=== PATIENT | female | born 1940 | race Two or more races ===

== ENCOUNTER 2016-08-12 18:01 | Emergency (ER) | payer OTHER ==
[2016-08-12 18:08] VITALS: TEMP 97.8
--- NOTE | 2016-08-12 18:20 | PDOC ---
History of Present Illness - History of Present Illness Initial Comments: 08/12/16 19:00 The patient is a 75 year old female with a past medical hx of TIA (2012), [place], HTN, who presents to the ED for evaluation of possible TIA yesterday. The patient reports she was in [place] yesterday when she started to have difficulty with her memory. She reports she was unable to recall the names of her children or grandchildren. The patient reports she went [place] the food court to sit down. She drank some water and took Aspirin and 2 nitro under her tongue. She reports she measured her pulse and it was around 120. The patient reports for about 90 minutes she kept testing her memory and trying to stay calm. She states she was finally able to recall the names of her children and grandchildren. She notes another similar episode happened in 2012 when she was diagnosed with a TIA. The patient went to see her Iron Erector today, Dr. Flor Navarro, who sent her to the ED for further evaluation of her symptoms. The patient notes she feels fine while in the ED. The patient denies any chest pain, SOB, nausea, vomiting The patient denies any weakness, numbness, headache Surgical: None Social: Denies any toxic habits Allergies: NKDA PCP: Dr. Rizvi <Kait Hernández - Last Filed: 08/12/16 21:18> <Sangeeta Morfin - Last Filed: 08/12/16 21:58> - General Chief Complaint: CVA/TIA Stated Complaint: PCP SENT/WEAKNESS Time Seen by Provider: 08/12/16 18:18 Past History <Kait Hernández - Last Filed: 08/12/16 21:18> - Past Medical History Cardiac Disorders: Yes (heart attack 2001) CVA: Yes HTN: Yes Suicide Attempt (Hx): No - Surgical History Appendectomy: Yes - Psycho/Social/Smoking Cessation Hx Anxiety: No Suicidal Ideation: No Smoking Status: No Smoking History: Never smoked Have you smoked in the past 12 months: No Number of Cigarettes Smoked Daily: 0 Hx Alcohol Use: No Drug/Substance Use Hx: No Substance Use Type: None Hx Substance Use Treatment: No <Sangeeta Morfin - Last Filed: 08/12/16 21:58> - Past Medical History Allergies/Adverse Reactions: Allergies Allergy/AdvReac Type Severity Reaction Status Date / Time No Known Allergies Allergy Verified 08/12/16 18:08 Home Medications: Ambulatory Orders Aspirin [ASA -] 81 mg PO DAILY 06/28/12 Atorvastatin Calcium [Lipitor] 10 mg PO DAILY 06/28/12 Metoprolol Tartrate [Lopressor -] 50 mg PO DAILY 06/28/12 Cetirizine HCl [Zyrtec -] 10 mg PO DAILY 08/12/16 Cholecalciferol (Vitamin D3) [Vitamin D3] 2,000 unit PO DAILY 08/12/16 Ubidecarenone [Q-Sorb Co Q-10] 0 mg PO DAILY 08/12/16 Review of Systems - Review of Systems Able to Perform ROS?: Yes Comments:: 08/12/16 19:05 CONSTITUTIONAL: Absent: fever, chills, diaphoresis, generalized weakness, malaise, loss of appetite HEENT: Absent: rhinorrhea, nasal congestion, throat pain, throat swelling, difficulty swallowing, mouth swelling, ear pain, eye pain, visual Changes CARDIOVASCULAR: Absent: chest pain, syncope, irregular heart rate, lightheadedness, peripheral edema RESPIRATORY: Absent: cough, shortness of breath, dyspnea with exertion, orthopnea, wheezing, stridor, hemoptysis GASTROINTESTINAL: Absent: abdominal pain, abdominal distension, nausea, vomiting, diarrhea, constipation, melena, hematochezia GENITOURINARY: Absent: dysuria, frequency, urgency, hesitancy, hematuria, flank pain, genital pain MUSCULOSKELETAL: Absent: myalgia, arthralgia, joint swelling SKIN: Absent: rash, itching, pallor HEMATOLOGIC/IMMUNOLOGIC: Absent: easy bleeding, easy bruising, lymphadenopathy, frequent infections ENDOCRINE: Absent: unexplained weight gain, unexplained weight loss, heat intolerance, cold intolerance NEUROLOGIC: +Difficulty recalling memory, confusion. Absent: headache, focal weakness or paresthesias, dizziness, unsteady gait, seizure, bladder or bowel incontinence PSYCHIATRIC: Absent: anxiety, depression, suicidal or homicidal ideation, hallucinations. <Kait Hernández - Last Filed: 08/12/16 21:18> *Physical Exam - Vital Signs Last Vital Signs Temp Pulse Resp BP Pulse Ox 97.8 F 78 18 185/88 96 08/12/16 18:03 08/12/16 18:03 08/12/16 18:03 08/12/16 18:03 08/12/16 18:03 - Physical Exam Comments: 08/12/16 19:02 GENERAL: Well developed, well nourished. Awake and alert. No acute distress. HEENT: Normocephalic, atraumatic. PERRLA, EOMI. No conjunctival pallor. Sclera are non- icteric. Moist mucous membranes. Oropharynx is clear. NECK: Supple. Full ROM. No JVD. Carotid pulses 2+ and symmetric, without bruits. No thyromegaly. No lymphadenopathy. CARDIOVASCULAR: Regular rate and rhythm. No murmurs, rubs, or gallops. Distal pulses are 2+ and symmetric. PULMONARY: No evidence of respiratory distress. Lungs clear to auscultation bilaterally. No wheezing, rales or rhonchi. ABDOMINAL: Soft. Non-tender. Non-distended. No rebound or guarding. No organomegaly. Normoactive bowel sounds. MUSCULOSKELETAL Normal range of motion at all joints. No bony deformities or tenderness. No CVA tenderness. EXTREMITIES: No cyanosis. No clubbing. No edema. No calf tenderness. SKIN: Warm and dry. Normal capillary refill. No rashes. No jaundice. NEUROLOGICAL: Alert, awake, appropriate. Cranial nerves 2-12 intact. No deficits to light touch and temperature in face, upper extremities and lower extremities. No motor deficits in the in face, upper extremities and lower extremities. Normoreflexic in the upper and lower extremities. Normal speech. Toes are down-going bilaterally. Gait is normal without ataxia. PSYCHIATRIC: Cooperative. Good eye contact. Appropriate mood and affect. <Kait Hernández - Last Filed: 08/12/16 21:18> - Vital Signs Last Vital Signs Temp Pulse Resp BP Pulse Ox 97.8 F 78 18 185/88 96 08/12/16 18:03 08/12/16 18:03 08/12/16 18:03 08/12/16 18:03 08/12/16 18:03 <Sangeeta Morfin - Last Filed: 08/12/16 21:58> Heart Score/ECG Review - ECG Impressions Comment:: 08/12/16 20:59 EKG Rate 96 bpm Sinus rhythm with frequent premature ventricular complexes Nonspecific ST and T wave abnormality Prolonged QT <Kait Hernández - Last Filed: 08/12/16 21:18> ED Treatment Course - LABORATORY CBC & Chemistry Diagram: 08/12/16 19:44 08/12/16 19:44 - RADIOLOGY Radiograph Interpretation: 08/12/16 21:13 Single view AP portable chest Headaches Comparison studies: June 28, 2012 Trachea midline with normal heart size and no mediastinal widening No infiltrate, mass or effusion Linear crescentic density of air seen beneath the left hemidiaphragm likely related to air within stomach or bowel, consider follow-up abdominal flat and upright views if clinically warranted for confirmation Impression: No infiltrate or edema in the lungs-no definite acute changes observed. Reported By: Nikolay King MD 08/12/162051 CT brain without contrast Headaches Comparison studies: June 28, 2012 Axial imaging completed demonstrating normal aeration in the sinuses and mastoids with no calvarial lesion Midline ventricular system with no shift or hydrocephalus No subdural or subarachnoid hemorrhage with no hyperdense vessel No signs of bowel herniation No evidence of increased intracranial pressure Impression: CT imaging completed with no evidence of mass, hemorrhage or acute vascular territory infarction. No acute changes in the brain identified. Reported By: Nikolay King MD 08/12/162021 <Kait Hernández - Last Filed: 08/12/16 21:18> - LABORATORY CBC & Chemistry Diagram: 08/12/16 19:44 08/12/16 19:44 <Sangeeta Morfin - Last Filed: 08/12/16 21:58> Medical Decision Making - Medical Decision Making 08/12/16 21:[address] Quintana at 20:45, awaiting call back Dr. Mcfarlane is scientific publications editor. Called back at 2100. The patients case was discussed Called Dr. Rizvi at 21:09, the patients case was discussed. <Kait Hernández - Last Filed: 08/12/16 21:18> - Medical Decision Making 08/12/16 21:20 75-year-old female experienced TIA symptoms yesterday while shopping at [employer] She had a 90 minute episode of difficulty speaking and retrieval -She states that at that time her pulse was high in the 120s, so she took 2 sublingual nitros. She was not experiencing any chest pain at the time but had complaint of palpitations-she did haven't have a cardiology appointment with Dr. Flor Quintana today. After she described her symptoms. 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 Amin is covering for Dr. Solis and gave him the CAT scan report which she will To the Patient's Iron Erector I spoke with the neurologist said that the patient could be followed as an outpatient or if she so desired, could be admitted for a brain MRI, echo and carotid Doppler studies The neurologist recommended full-strength aspirin at this time The Dr. Rizvi, who is the patient's primary medical doctor and he wanted her discharged and will see her at 9:30 tomorrow morning in his office when he will arrange for brain MRI, echo and carotid ultrasound -NIHSS IS ZERO WITH NO FOCAL NEURO DEFICITS NOTED . ALL HER SYMPTOMS OCCURRED 24 HOURS AGO 08/12/16 21:54 <Sangeeta Morfin - Last Filed: 08/12/16 21:58> *DC/Admit/Observation/Transfer - Attestations Scribe Attestion: 08/12/16 19:00 Documentation prepared by Kait Hernández, acting as biomedical service engineer for Sangeeta Morfin MD/DO. <Kait Hernández - Last Filed: 08/12/16 21:18> <Sangeeta Morfin - Last Filed: 08/12/16 21:58> Diagnosis at time of Disposition: TIA (transient ischemic attack) Qualifiers: Transient cerebral ischemia type: other Qualified Code(s): G45.8 - Other transient cerebral ischemic attacks and related syndromes - Discharge Dispostion Disposition: HOME Condition at time of disposition: Stable - Referrals Referrals: Navarro Rizvi MD [Primary Care Provider] - - Patient Instructions Printed Discharge Instructions: DI for Transient Ischemic Attack Additional Instructions: PLEASE SEE DR RIZVI TOMORROW AT 9:30 IN HIS OFFICE CALL 911 IF YOU HAVE ANY CONFUSION, WEAKNESS IN YOUR ARMS OR LEGS,NUMBNESS OR TINGLING IN YOUR FACE ,SPEECH DIFFICULTY NIH Stroke Scale - Last Known Well Date/Time & Onset Date Last Known Well: 08/11/16 Time Last Known Well: 14:00 - Initial Evaluation Level of consciousness: Alert Ask patient the month and their age: Answers both correctly Ask patient to open & close eyes; make fist and let go: Obeys both correctly Best gaze (horizontal eye movement): Normal Visual field testing: No visual field loss Facial paresis (Show teeth/raise eyebrows/close eyes tight): Normal symmetrical movement Motor Function: Left Arm: Normal Motor Function: Right Arm: Normal (extends arm 90 (or 45) degrees for 10 seconds without drift Motor Function: Left Leg: Normal (extends leg 30 degrees for 5 seconds without drift) Motor Function: Right Leg: Normal (extends leg 30 degrees for 5 seconds without drift) Limb Ataxia: No ataxia Sensory(Use pinprick test arms,legs,trunk,face/side to side): Normal Best language (Describe picture, name items, read sentences): No Aphasia Dysarthria (read several words): Normal articulation Extinction and Inattention: No abnormality - Total Score NIH Stroke Scale Score: 0 <Sangeeta Morfin - Last Filed: 08/12/16 21:58>
[2016-08-12] MEDS ORDERED: ASPIRIN 325 MG TABLET PO ONE (21:20)
[2016-08-12] MEDS ORDERED: ASPIRIN 325 MG TABLET ONE (21:44)
[2016-08-12 22:03] VITALS: BP 177/76; PULSE 72
--- NOTE | 2016-08-13 10:35 | EKG ---
Test Reason : Blood Pressure : / mmHG Vent. Rate : 096 BPM Atrial Rate : 068 BPM P-R Int : 174 ms QRS Dur : 088 ms QT Int : 386 ms P-R-T Axes : 029 -19 -18 degrees QTc Int : 487 ms SINUS RHYTHM WITH FREQUENT PREMATURE VENTRICULAR COMPLEXES NONSPECIFIC ST AND T WAVE ABNORMALITY PROLONGED QT ABNORMAL ECG WHEN COMPARED WITH ECG OF 28-JUN-2012 16:17, PREMATURE VENTRICULAR COMPLEXES ARE NOW PRESENT T WAVE INVERSION NOW EVIDENT IN ANTERIOR LEADS T WAVE INVERSION LESS EVIDENT IN LATERAL LEADS Confirmed by TEQUILA MENDEZ, ALEX ([id number]) on 08/13/2016 10:34:25 AM Referred By: Confirmed By:ALEX MANDEL MD
--- NOTE | 2016-08-15 14:17 | PDOC ---
Patient Follow-up (Call Back) - Post ED Follow - Up Chief Complaint: CVA/TIA Condition at time of discharge: Stable Disposition at time of original discharge: HOME - Disposition Additional Instructions/Notes: urine culture results discussed with patient. patient reports that urine specimen was not given during this visit. will check UA with pmd.
== END 2016-08-12 22:05 | disposition home or self-care (01) ==
LOC: JER 18:01
DX: G45.8 Other transient cerebral ischemic attacks and related syndromes (principal); I25.2 Old myocardial infarction; I10 Essential (primary) hypertension; Z86.73 Personal history of transient ischemic attack (TIA), and cerebral infarction without residual deficits
CPT/HCPCS: 36415; 70450-TC; 71010-TC; 80053; 81003; 81015; 82550; 84484; 85025; 85610; 86850; 86900; 86901; 87086; 87186; 93005; 93010; 99285-25

== ENCOUNTER 2017-03-05 22:56 | Observation (INO) | payer OTHER ==
[2017-03-05 23:05] VITALS: BMI 29.2
--- NOTE | 2017-03-05 23:14 | PDOC ---
History of Present Illness <Corinne Novoa - Last Filed: 03/06/17 01:34> - General History Source: Patient Exam Limitations: No Limitations - History of Present Illness Initial Comments: 03/06/17 01:40 The patient is a 76-year-old female, with a significant past medical history of HTN, hyperlipidemia, 2 prior TIAs, and a prior VA, who presents to the ED with pain in left arm, shortness of breath, and a lightheaded feeling in the left side of her head that began today. She denies any numbness. Upon arrival to the ER, the pts blood pressure was noted to be high at 213/85. She reports taking her metoprolol tonight along with 4 baby aspirin. Pts shortness of breath has now resolved. The patient denies any fever, chills, nausea, vomiting diarrhea, or abdominal pain. She denies any chest pain. PCP: Dr. Mac <Susan Valdivia - Last Filed: 03/06/17 01:46> - General Stated Complaint: NUMBNESS Time Seen by Provider: 03/05/17 23:02 Past History - Past Medical History Cardiac Disorders: Yes (heart attack 2001) CVA: Yes HTN: Yes - Surgical History Appendectomy: Yes - Suicide/Smoking/Psychosocial Hx Smoking Status: No Smoking History: Never smoked Have you smoked in the past 12 months: No Number of Cigarettes Smoked Daily: 0 Hx Alcohol Use: No Drug/Substance Use Hx: No Substance Use Type: None Hx Substance Use Treatment: No <Corinne Novoa - Last Filed: 03/06/17 01:34> <Susan Valdivia - Last Filed: 03/06/17 01:46> - Past Medical History Allergies/Adverse Reactions: Allergies Allergy/AdvReac Type Severity Reaction Status Date / Time No Known Allergies Allergy Verified 03/05/17 23:02 Home Medications: Ambulatory Orders Aspirin [ASA -] 81 mg PO DAILY 06/28/12 Atorvastatin Calcium [Lipitor] 10 mg PO DAILY 06/28/12 Metoprolol Tartrate [Lopressor -] 50 mg PO DAILY 06/28/12 Review of Systems - Review of Systems Able to Perform ROS?: Yes Comments:: 03/06/17 01:41 GENERAL/CONSTITUTIONAL: No fever or chills. HEAD, EYES, EARS, NOSE AND THROAT: No change in vision. No ear pain or discharge. No sore throat. CARDIOVASCULAR: No chest pain or shortness of breath. RESPIRATORY: No cough, wheezing, or hemoptysis. GASTROINTESTINAL: No nausea, vomiting, diarrhea or constipation. GENITOURINARY: No dysuria, frequency, or change in urination. MUSCULOSKELETAL: (+) left arm pain No joint swelling or pain. No neck or back pain. SKIN: No rash NEUROLOGIC: (+)Left sided facial weakness. No headache, vertigo, loss of consciousness. ENDOCRINE: No increased thirst. No abnormal weight change. HEMATOLOGIC/LYMPHATIC: No anemia, easy bleeding, or history of blood clots. ALLERGIC/IMMUNOLOGIC: No hives or skin allergy. <Susan Valdivia - Last Filed: 03/06/17 01:46> *Physical Exam - Vital Signs Last Vital Signs Temp Pulse Resp BP Pulse Ox 97.4 F L 58 L 18 151/85 99 03/06/17 00:56 03/06/17 00:56 03/06/17 00:56 03/06/17 00:56 03/06/17 00:56 - Physical Exam Comments: 03/06/17 01:43 GENERAL: Awake, alert, and fully oriented, in no acute distress HEAD: No signs of trauma EYES: PERRLA, EOMI, sclera anicteric, conjunctiva clear ENT: Auricles normal inspection, hearing grossly normal, nares patent, oropharynx clear without exudates. Moist mucosa NECK: Normal ROM, supple, no lymphadenopathy, JVD, or masses LUNGS: Breath sounds equal, clear to auscultation bilaterally. No wheezes, and no crackles HEART: Tachycardic. Normal S1 and S2, no murmurs, rubs or gallops ABDOMEN: Soft, nontender, normoactive bowel sounds. No guarding, no rebound. No masses EXTREMITIES: Normal range of motion, no edema. No clubbing or cyanosis. No cords, erythema, or tenderness NEUROLOGICAL: Cranial nerves II through XII grossly intact. Normal speech, normal gait SKIN: Warm, Dry, normal turgor, no rashes or lesions noted <Susan Valdivia - Last Filed: 03/06/17 01:46> Heart Score/ECG Review - ECG Intrepretation Comment:: 03/06/17 00:35 sinus at 68, nl axis, nl interval, t wave flattening diffusely <Corinne Novoa - Last Filed: 03/06/17 01:34> ED Treatment Course - LABORATORY CBC & Chemistry Diagram: 03/05/17 23:15 03/05/17 23:15 <Corinne Novoa - Last Filed: 03/06/17 01:34> - LABORATORY CBC & Chemistry Diagram: 03/05/17 23:15 03/05/17 23:15 - ADDITIONAL ORDERS Additional order review: Laboratory Results 03/06/17 03/05/17 03/05/17 00:50 23:15 23:15 Sodium 142 Potassium 3.8 Chloride 104 Carbon Dioxide 27 Anion Gap 11 BUN 22 H D Creatinine 0.9 Creat Clearance w eGFR > 60 Random Glucose 124 H D Calcium 8.7 Magnesium 2.2 Total Bilirubin 0.3 AST 14 L D ALT 19 Alkaline Phosphatase 87 Creatine Kinase 109 Troponin I < 0.02 B-Natriuretic Peptide 66.36 Total Protein 7.3 Albumin 4.1 Urine Color Ltyellow Urine Appearance Clear Urine pH 5.0 Ur Specific [place] 1.012 Urine Protein Negative Urine Glucose (UA) Negative Urine Ketones Negative Urine Blood 1+ H Urine Nitrite Negative Urine Bilirubin Negative Urine Urobilinogen Negative Urine RBC 3 Urine WBC 3 Ur Epithelial Cells Rare Urine Bacteria Rare 03/05/17 23:15 RBC 4.50 MCV 87.9 MCHC 33.1 RDW 13.5 MPV 9.9 Neutrophils % 43.3 Lymphocytes % 44.1 H Monocytes % 9.3 Eosinophils % 2.5 D Basophils % 0.8 <Susan Valdivia - Last Filed: 03/06/17 01:46> Medical Decision Making - Medical Decision Making 03/06/17 00:33 a/p: 76yo female with hx of VA and TIA, htn presents or eval of elevated BP and L arm pain that goes from arm to neck. Assoc sob. NO cp -concern given hx of VA -no neuro deficits. no diego no cough, no fevers suspect acs vs hypertensive urgency/emergency -labs, ct head, cxr, ekg, trop cardiac monitoring will need BP control if BP persistently over 200. reassess 03/06/17 00:42 re-eval: pt feeling much better. No headache. No cp/sob. Mild arm pain. No abd pain. Returned from head ct. 03/06/17 01:31 pt feeling better. Pt agrees to stay for further eval in obs. Case discussed with Dr. Mac who accepts pt to service under obs. <Corinne Novoa - Last Filed: 03/06/17 01:34> *DC/Admit/Observation/Transfer - Discharge Dispostion Admit: Yes - Attestations Physician Attestion: 03/06/17 01:33 I, Dr. Corinne Novoa DO, attest that this document has been prepared under my direction and personally reviewed by me in its entirety. I further attest, that it accurately reflects all work, treatment, procedures and medical decision -making performed by me. <Corinne Novoa - Last Filed: 03/06/17 01:34> - Attestations Scribe Attestion: 03/06/17 01:45 Documentation prepared by Susan Valdivia, acting as medical aides teacher for Corinne Novoa DO. <Susan Valdivia - Last Filed: 03/06/17 01:46> Diagnosis at time of Disposition: Hypertensive urgency, Dyspnea - Discharge Dispostion Condition at time of disposition: Fair - Referrals Referrals: Navarro Mac MD [Primary Care Provider] -
[2017-03-05] MEDS ORDERED: LABETALOL HCL 5 MG/1 ML (200MG/40ML VIAL) IVPB ONE (23:17)
[2017-03-05] MEDS: LABETALOL HCL 5 MG/1 ML (100MG/20 ML VIAL) IVPUSH ONE (23:20)
[2017-03-05 23:26] LABS: BASOPHIL 0.8 % (0-2.0); EOSINOPHIL 2.5 % (0-4.5); MCH 29.1 pg (25.7-33.7); MCHC 33.1 g/dl (32.0-36.0); MEAN CELL VOLUME 87.9 fl (80-96); MEAN PLT VOLUME 9.9 fl (7.5-11.1); NEUTROPHILS 43.3 % (42.8-82.8); PLATELET COUNT 220 K/MM3 (134-434); RDW 13.5 % (11.6-15.6); WHITE BLOOD COUNT 6.2 K/mm3 (4.0-10.0)
[2017-03-05 23:53] LABS: ALBUMIN 4.1 g/dl (3.4-5.0); ANION GAP 11 (8-16); BILIRUBIN,TOTAL 0.3 mg/dL (0.2-1.0); CALCIUM 8.7 mg/dL (8.5-10.1); CO2 27 mmol/L (21-32); CREATININE 0.9 mg/dL (0.55-1.02); GLUCOSE,RANDOM 124 mg/dL (74-106); MAGNESIUM 2.2 mg/dL (1.8-2.4); SGOT/AST 14 U/L (15-37); SGPT/ALT 19 U/L (12-78); TOT PROT 7.3 g/dl (6.4-8.2)
[2017-03-05 23:55] LABS: ALK PHOS 87 U/L (45-117); CPK 109 IU/L (26-192); TROPONIN I < 0.02 ng/ml (0.00-0.05)
[2017-03-06] MEDS ORDERED: ACETAMINOPHEN 325 MG TABLET (FP) PO ONE (00:43)
[2017-03-06 00:58] LABS: URINE APPEARANCE CLEAR; URINE BILIRUBIN NEGATIVE (NEGATIVE); URINE BLOOD 1+ (NEGATIVE); URINE COLOR LTYELLOW; URINE GLUCOSE (UA) NEGATIVE (NEGATIVE); URINE KETONE NEGATIVE (NEGATIVE); URINE NITRITE NEGATIVE (NEGATIVE); URINE PROTEIN NEGATIVE (NEGATIVE); URINE UROBILINOGEN NEGATIVE mg/dL (0.2-1.0)
[2017-03-06 01:19] LABS: URINE RBC 3; URINE WBC 3
[2017-03-06 01:20] LABS: URINE BACTERIA RARE /hpf (NONE SEEN)
[2017-03-06] MEDS ORDERED: ACETAMINOPHEN 325 MG TABLET (FP) ONE (02:09)
[2017-03-06] MEDS: LABETALOL HCL 5 MG/1 ML (100MG/20 ML VIAL) IVPUSH ONE (02:11)
[2017-03-06 09:01] LABS: URINE LEUK ESTERASE Negative (NEGATIVE)
[2017-03-06 09:54] LABS: BASOPHIL 0.5 % (0-2.0); EOSINOPHIL 2.4 % (0-4.5); MCH 28.7 pg (25.7-33.7); MCHC 32.5 g/dl (32.0-36.0); MEAN CELL VOLUME 88.1 fl (80-96); MEAN PLT VOLUME 9.5 fl (7.5-11.1); NEUTROPHILS 52.6 % (42.8-82.8); PLATELET COUNT 212 K/MM3 (134-434); WHITE BLOOD COUNT 5.5 K/mm3 (4.0-10.0)
[2017-03-06 10:20] LABS: ALBUMIN 3.7 g/dl (3.4-5.0); ANION GAP 9 (8-16); CALCIUM 8.4 mg/dL (8.5-10.1); CO2 26 mmol/L (21-32); CREATININE 0.9 mg/dL (0.55-1.02); GLUCOSE,RANDOM 156 mg/dL (74-106); SGOT/AST 13 U/L (15-37); SGPT/ALT 19 U/L (12-78)
[2017-03-06 10:24] LABS: ALK PHOS 81 U/L (45-117); BILIRUBIN,TOTAL 0.5 mg/dL (0.2-1.0); CPK 87 IU/L (26-192); TOT PROT 6.9 g/dl (6.4-8.2); TROPONIN I < 0.02 ng/ml (0.00-0.05)
--- NOTE | 2017-03-06 11:11 | EKG ---
Test Reason : Blood Pressure : / mmHG Vent. Rate : 068 BPM Atrial Rate : 068 BPM P-R Int : 162 ms QRS Dur : 086 ms QT Int : 428 ms P-R-T Axes : 046 -25 -13 degrees QTc Int : 455 ms NORMAL SINUS RHYTHM MINIMAL VOLTAGE CRITERIA FOR LVH, MAY BE NORMAL VARIANT SEPTAL INFARCT , AGE UNDETERMINED ABNORMAL ECG WHEN COMPARED WITH ECG OF 12-AUG-2016 19:41, PREMATURE VENTRICULAR COMPLEXES ARE NO LONGER PRESENT Confirmed by YURIDIA RUBIO MD ([id number]) on 03/06/2017 11:11:01 AM Referred By: Confirmed By:YURIDIA RUBIO MD
--- NOTE | 2017-03-06 14:14 | CON.CARD ---
Cardiology Consult (text) - Consultation Consultation Note: CC: left arm/chest pain, sob, presyncope. 76 yo with h/o HTN, hl, possible prior tia sx's, and a possible prior NJ (per patient report), lvh, thyroid nodule, anxiety who presents to the ED with pain in left arm, radiating to her left neck. States this morning developed acute onset of pain radiating down her left upper chest to her left arm and radiating up her left neck to head. Associated with warm sensation in the back of her head. denies associated sx's. She took extra aspirin with mild improvement in her symptoms. Had resolution of sx's after arriving at ER. endorses + recent stressors - worried about her daughter who has pna. Patient has had 2 prior episodes of transient symptoms of inability to speak or recall words/names. negative prior work up. Of note, patient had carotid u/s as outpatient last year which showed 60-79% stenosis (report noted stenosis was likely closer to 60%). Patient was scheduled for follow up cta of neck, but never completed exam. Patient clarifies her h/o NJ in her chart. In early developed sudden chest tightness that woke her from sleep. Associated with pain radiating down left arm and to left neck (similar to current symptoms). Had negative stress testing and was told by her petroleum refining equipment operator that the episode was not cardiac. However, she states that since then her ekg has been abnormal and she believes she had an NJ. Upon arrival to the ER, the pts blood pressure was noted to be 213/85. Decreased to 162/75 without intervention. patient states bp increases when she is stressed. States she stopped taking her chlorthlidone 12.5 mg/day a few months ago when she ran out of refills b/c it was causing frequent urination. States sbp's have been running 140's-160's. Denies recent cv symptoms, decreased exercise capacity, sob, recent palps, dizziness, syncope, bleeding, transient neurologic symptoms, orthopnea, pnd, le edema. The patient denies any fever, chills, nausea, vomiting diarrhea, or abdominal pain. denies rashes, cough, congestion. Pmhx/pshx: per hpi, appendectomy. Social hx: never smoked fam hx: Father multiple NJ's, first at 60. . Mother with unknown arrhythmia ros: per hpi Ambulatory Orders Aspirin [ASA -] 81 mg PO DAILY 06/28/12 Atorvastatin Calcium [Lipitor] 10 mg PO DAILY 06/28/12 Metoprolol Tartrate [Lopressor -] 50 mg PO DAILY 06/28/12 Vital Signs - 24 hr 03/05/17 03/05/17 03/06/17 23:03 23:25 00:56 Temperature 98.0 F 97.4 F L Pulse Rate 88 Pulse Rate [ 58 L Apical] Respiratory 14 18 Rate Blood Pressure 213/85 Blood Pressure 162/75 151/85 [Right Arm] O2 Sat by Pulse 99 99 Oximetry (%) 03/06/17 03/06/17 03/06/17 05:22 07:43 12:39 Temperature 97.6 F 98 F 98.0 F Pulse Rate Pulse Rate [ 50 L 58 L 54 L Apical] Respiratory 18 18 16 Rate Blood Pressure Blood Pressure 114/53 122/62 156/77 [Right Arm] O2 Sat by Pulse 99 99 98 Oximetry (%) NAD, calm JVD flat, neck supple ctab, nl effort rrr nl s1, s2 2/6 soft sys murmur at usb and apex. + bs soft nt nd ext without e/c/c + dp/pt aaox3 no carotid bruits no jaundice, diaphoresis CBC, BMP 03/06/17 09:27 03/06/17 09:27 Laboratory Tests 03/05/17 03/05/17 03/06/17 23:15 23:15 09:27 Magnesium Total Bilirubin 0.5 D AST 13 L ALT 19 Alkaline Phosphatase 81 Creatine Kinase 87 Troponin I < 0.02 < 0.02 B-Natriuretic Peptide 66.36 Albumin 3.7 03/06/17 09:27 Magnesium 2.3 Total Bilirubin AST ALT Alkaline Phosphatase Creatine Kinase Troponin I B-Natriuretic Peptide Albumin EKG 02/2017: nsr, leftward axis, lvh. patient with loss of r wave progression. diffuse t wave inversions, slightly more prominent in lateral leads in comparison to prior. tele: nsr stress test 02/2017: resting htn. 99% phr. 6 METS. 1 mm inferolateral horiz std. persisted 8 min into recovery. small area of mild apical ischemia. TID ratio 1.19. EF 70%. nl wall motion . head ct:: no acute pathology cxr:wnl Echo SJR 2013: mild concentric LVH, nl lv/rv size/fn, 1+ MR. Stress 2012:10.2 METS. Resting HTN. Blunted BP response. Isolated PVCs, no ischemic EKG changes. Breast attenuation, no ischemia. Nl EF. Carotid u/s 09/2015: Moderate atherosclerosis, stenosis 60-79% (most likely within lower portion of range). Nl velocities on left. Nl verts. 76 yo with h/o HTN, hl, possible prior tia sx's, and a possible prior NJ (per patient report), lvh, thyroid nodule, anxiety who presents to the ED with pain in left arm, radiating to her left neck. left arm pain. - stress test ordered --> mild apical ischemia, but also some question of borderline TID. Will need to review images, if no TID, can cont medical mgm' t. If concerning for TID then can consider possible invasive evaluation. Symptoms atypical for cardiac pain - similar to pain which she experienced when she believes she had a prior NJ/cardiac event (although stress testing normal at that time). However, ekg now with loss of r wave progression and subtle differences in baseline t wave abnormalities. - con't outpatient asa, statin. - patient also with history of 60-79% (thought to be closer to 60%) stenosis on carotid u/s. Patient had been referred for CTA for further evaluation but never went. Will obtain here. - will obtain 3rd set of cardiac enzymes. - con't tele until stress testing clarified. htn - had stopped thiazide diuretic because she ran out of refills and it was causing bothersome urination. - patient with suboptimal bp control here, exacerbated by anxiety. Would switch metoprolol to coreg and uptitrate regimen as needed. - tsh - patient with thyroid nodule which she has not gotten follow up evaluation of. heart murmur - stable exam, likely aortic sclerosis. can defer echo to outpatient.
[2017-03-06] MEDS ORDERED: FLU VACCINE QUAD 60 MCG/0.5 ML (MDV 17-18) IM ONE (16:00)
[2017-03-06] MEDS: ATORVASTATIN CA 10 MG TABLET (FP) PO SCH (21:05)
[2017-03-06] MEDS: CARVEDILOL 3.125 MG TABLET (FP) PO SCH (21:05)
[2017-03-06 21:34] LABS: CPK 89 IU/L (26-192); THYROID STIMULATING HORMONE 2.57 uIU/ml (0.358-3.74); TROPONIN I < 0.02 ng/ml (0.00-0.05)
[2017-03-07] MEDS: ASPIRIN 81 MG CHEWABLE TABLETS PO SCH (09:08)
[2017-03-07] MEDS: CARVEDILOL 3.125 MG TABLET (FP) PO SCH ×2 (09:08→22:37)
--- NOTE | 2017-03-07 09:55 | HP ---
DATE OF ADMISSION: 03/06/2017 HISTORY OF PRESENT ILLNESS: This is a 76-year-old female known to have hypertension, coronary artery disease, who came to the emergency room the day before yesterday with complaints of pain in the left upper extremity radiating to the neck. She says the way she had pain when she had acute NV. So, workup was done in the ER. Cardiology consult was obtained by her piano accompanist, Abbie Quintana MD. Yesterday evening, she had a stress test which came out positive. Discussed with the piano accompanist. She will have to be admitted for further management. This morning, patient is feeling better. PHYSICAL EXAMINATION: Vital Signs: BP 120/72, respirations 20, pulse 70, temperature 98. HEENT: Unremarkable. Neck: Supple. No JVD. Lungs: Clear. Heart: S1, S2 normal. No S3 or S4. Abdomen: Soft. There are no masses. Legs: No edema. Neurological: Status normal. LABORATORY REPORTS: WBC 5.5, hemoglobin 12.9, platelets 212. Chemistry: Sodium 142, potassium 3.9, chloride 107, BUN 17, creatinine 0.9. B peptide normal. IMPRESSION: 1. Atherosclerotic heart disease. 2. Coronary artery disease. 3. Hypertension. 4. Chest pain. PLAN: As ordered by piano accompanist. Will follow. Matt [id number]
--- NOTE | 2017-03-07 12:39 | PN ---
Progress Note (short form) - Note Progress Note: s: feeling well, no complaints, asking to go home, no cp sob palps dizzy o: Vital Signs Period Temp Pulse Resp BP Sys/Burger Pulse Ox Last 24 Hr 97.6 F-98.6 F 54-75 16-18 126-173/65-80 96-98 NAD, calm JVD flat, neck supple ctab, nl effort rrr nl s1, s2 2/6 soft sys murmur at usb and apex. + bs soft nt nd ext without e/c/c aaox3 no jaundice, diaphoresis Current Medications Generic Name Dose Route Start Last Admin Trade Name Freq PRN Reason Stop Dose Admin Aspirin 81 mg 03/07/17 10:00 03/07/17 09:08 Asa - PO 81 mg DAILY EVA Administration Atorvastatin Calcium 10 mg 03/06/17 22:00 03/06/17 21:05 Lipitor - PO 10 mg HS EVA Administration Carvedilol 3.125 mg 03/06/17 22:00 03/07/17 09:08 Coreg - PO 3.125 mg BID EVA Administration CBC, BMP 03/06/17 09:27 03/06/17 09:27 EKG 02/2017: nsr, leftward axis, lvh. patient with loss of r wave progression. diffuse t wave inversions, slightly more prominent in lateral leads in comparison to prior. tele: sr stress test 02/2017: resting htn. 99% phr. 6 METS. 1 mm inferolateral horiz std. persisted 8 min into recovery. small area of mild apical ischemia. TID ratio 1.19. EF 70%. nl wall motion . head ct:: no acute pathology cxr:wnl Echo SJR 2012: mild concentric LVH, nl lv/rv size/fn, 1+ MR. Stress 2011:10.2 METS. Resting HTN. Blunted BP response. Isolated PVCs, no ischemic EKG changes. Breast attenuation, no ischemia. Nl EF. Carotid u/s 09/2015: Moderate atherosclerosis, stenosis 60-79% (most likely within lower portion of range). Nl velocities on left. Nl verts. a/p: 76 yo with h/o HTN, hl, possible prior tia sx's, and a possible prior [place] (per patient report), lvh, thyroid nodule, anxiety who presents to the ED with pain in left arm, radiating to her left neck. left arm pain. - stress test ordered --> mild apical ischemia, borderline TID. can cont medical mgm't for now. no concerning cardiac sxs presently. no suspicion for acs. - con't outpatient asa, statin. - patient also with history of 60-79% (thought to be closer to 60%) stenosis on carotid u/s. Patient had been referred for CTA for further evaluation but never went. Will obtain here. htn -cont current meds heart murmur - stable exam, likely aortic sclerosis. can defer echo to outpatient. if cta neck unremarkable then ok for dc from cardiac pov
[2017-03-07] MEDS: ATORVASTATIN CA 10 MG TABLET (FP) PO SCH (22:37)
[2017-03-08] MEDS: ASPIRIN 81 MG CHEWABLE TABLETS PO SCH (09:25)
[2017-03-08] MEDS: CARVEDILOL 3.125 MG TABLET (FP) PO SCH (09:25)
--- NOTE | 2017-03-08 11:50 | PN ---
Progress Note (short form) - Note Progress Note: s: feeling well, no complaints, asking to go home, no cp sob palps dizzy o: Vital Signs Period Temp Pulse Resp BP Sys/Burger Pulse Ox Last 24 Hr 97.3 F-98.8 F 63-75 18-20 123-157/66-81 97-97 NAD, calm JVD flat, neck supple ctab, nl effort rrr nl s1, s2 2/6 soft sys murmur at usb and apex. + bs soft nt nd ext without e/c/c aaox3 no jaundice, diaphoresis Current Medications Generic Name Dose Route Start Last Admin Trade Name Freq PRN Reason Stop Dose Admin Aspirin 81 mg 03/07/17 10:00 03/08/17 09:25 Asa - PO 81 mg DAILY EVA Administration Atorvastatin Calcium 10 mg 03/06/17 22:00 03/07/17 22:37 Lipitor - PO 10 mg HS EVA Administration Carvedilol 3.125 mg 03/06/17 22:00 03/08/17 09:25 Coreg - PO 3.125 mg BID EVA Administration Losartan Potassium 25 mg 03/08/17 12:30 Cozaar - PO 03/08/17 12:31 ONCE ONE CBC, BMP 03/06/17 09:27 03/06/17 09:27 EKG 02/2017: nsr, leftward axis, lvh. patient with loss of r wave progression. diffuse t wave inversions, slightly more prominent in lateral leads in comparison to prior. tele: sr stress test 02/2017: resting htn. 99% phr. 6 METS. 1 mm inferolateral horiz std. persisted 8 min into recovery. small area of mild apical ischemia. TID ratio 1.19. EF 70%. nl wall motion . head ct:: no acute pathology cxr:wnl Echo SJR 2012: mild concentric LVH, nl lv/rv size/fn, 1+ MR. Stress 2011:10.2 METS. Resting HTN. Blunted BP response. Isolated PVCs, no ischemic EKG changes. Breast attenuation, no ischemia. Nl EF. Carotid u/s 09/2015: Moderate atherosclerosis, stenosis 60-79% (most likely within lower portion of range). Nl velocities on left. Nl verts. a/p: 76 yo with h/o HTN, hl, possible prior tia sx's, and a possible prior [place] (per patient report), lvh, thyroid nodule, anxiety who presents to the ED with pain in left arm, radiating to her left neck. left arm pain. - stress test ordered --> mild apical ischemia, borderline TID. can cont medical mgm't for now. no concerning cardiac sxs presently. no suspicion for acs. - con't outpatient asa, statin. - patient also with history of 60-79% (thought to be closer to 60%) stenosis on carotid u/s. Patient had been referred for CTA for further evaluation as outpt but never went. Tried to obtain here but pt refusing. htn -cont current meds heart murmur - stable exam, likely aortic sclerosis. can defer echo to outpatient. cardiac [place] stable for dc
--- NOTE | 2017-03-08 12:04 | PN ---
Progress Note, Physician Chief Complaint: No complaints of chest pain or SOB History of Present Illness: 76 yrs old F with H/O HTN, Hypercholesterolemia, TIA carotid Ac stenosis present to Ed with Chest pain in the setting of non compliance with BP meds , Hypertensive urgency, no new EKG changes , stress test shows mild apical ischemia, now asymptomatic awaiting CTA neck to evaluate Carotid A stenosis. - Current Medication List Current Medications: Active Medications Aspirin (Asa -) 81 mg PO DAILY [facility] Last Admin: 03/08/17 09:25 Dose: 81 mg Atorvastatin Calcium (Lipitor -) 10 mg PO HS [facility] Last Admin: 03/07/17 22:37 Dose: 10 mg Carvedilol (Coreg -) 3.125 mg PO BID [facility] Last Admin: 03/08/17 09:25 Dose: 3.125 mg Losartan Potassium (Cozaar -) 25 mg PO ONCE ONE Stop: 03/08/17 11:44 - Objective Vital Signs: Vital Signs Temperature 97.5 F L 03/08/17 10:00 Pulse Rate 74 03/08/17 10:00 Respiratory Rate 18 03/08/17 10:00 Blood Pressure 151/75 03/08/17 10:00 O2 Sat by Pulse Oximetry (%) 97 03/08/17 09:00 Elderly F comfortable not in distress HEENT: Mm moist no anemia, PERRLA EOMI NECK No JVd No Bruit, Central trachea CHEST: CTA B/L CVS; S1S2 R no m/g/r ABD: No tender Bs + EXT: No inga afeet, no calf tenderness MOTOR EXPERT;AOX3 non focal Labs: CBC, BMP 03/06/17 09:27 03/06/17 09:27 Problem List - Problems (1) Chest pain Assessment/Plan: Present with typical chest pain resolved in the setting of uncontrolled HTN, NST mild apical ischemia normal serial CE, evaluated by cardiology consult will consider medical management, optimize BP control, cont coreg , ASa and Lipitor add Lasartn 25 mg daily to optimize BP control. Code(s): R07.9 - CHEST PAIN, UNSPECIFIED Qualifiers: Chest pain type: chest pain due to myocardial ischemia (2) Hypertensive urgency Assessment/Plan: now BP is better controlled add Loasratan 25 mg daily to optimize BP control. Code(s): I16.0 - HYPERTENSIVE URGENCY (3) Hypercholesteremia Assessment/Plan: Cont Lipitor F/U HbA1C Lipid and TSH level. Code(s): E78.00 - PURE HYPERCHOLESTEROLEMIA, UNSPECIFIED (4) Carotid artery stenosis Assessment/Plan: H/O B/L Carotid A stenosis , last scan 2 yrs ago will Rpt Carotid Doppler, patient is refusing CTA Code(s): I65.29 - OCCLUSION AND STENOSIS OF UNSPECIFIED CAROTID ARTERY Qualifiers: Laterality: bilateral Qualified Code(s): I65.23 - Occlusion and stenosis of bilateral carotid arteries
[2017-03-08] MEDS ORDERED: LOSARTAN POTASSIUM 25 MG TABLET PO ONE (12:30)
[2017-03-08 13:38] LABS: THYROID STIMULATING HORMONE 2.18 uIU/ml (0.358-3.74)
[2017-03-08 18:04] VITALS: BP 136/69; PULSE 63; TEMP 97.1
[2017-03-09] MEDS ORDERED: LOSARTAN POTASSIUM 25 MG TABLET PO SCH (10:00)
--- NOTE | 2017-03-10 20:51 | DS ---
Physical Examination Vital Signs: Vital Signs Temperature 97.1 F L 03/08/17 18:02 Pulse Rate 63 03/08/17 18:02 Respiratory Rate 18 03/08/17 18:02 Blood Pressure 136/69 03/08/17 18:02 O2 Sat by Pulse Oximetry (%) 97 03/08/17 09:00 Findings/Remarks: 6 yrs old F with H/O HTN, Hypercholesterolemia, TIA carotid Ac stenosis present to Ed with Chest pain in the setting of non compliance with BP meds , Hypertensive urgency, no new EKG changes , stress test shows mild apical ischemia, Patient refused CTA carotids to evaluated Carotid A stenosis, Carotid Doppler shows non critical CA stenosis. - Temperature 97.5 F L 03/08/17 10:00 Pulse Rate 74 03/08/17 10:00 Respiratory Rate 18 03/08/17 10:00 Blood Pressure 151/75 03/08/17 10:00 O2 Sat by Pulse Oximetry (%) 97 03/08/17 09:00 Elderly F comfortable not in distress HEENT: Mm moist no anemia, PERRLA EOMI NECK No JVd No Bruit, Central trachea CHEST: CTA B/L CVS; S1S2 R no m/g/r ABD: No tender Bs + EXT: No inga afeet, no calf tenderness EVENT SPECIALIST;AOX3 non focal Labs: CBC, BMP 03/06/17 09:27 03/06/17 09:27 Discharge Summary Reason For Visit: HYPERTENSIVE URGENCY DYSPNEA Condition: Good - Instructions Diet, Activity, Other Instructions: Low salt low cholesterol Referrals: Navarro Mac MD [Primary Care Provider] - 1 Week Abbie Quintana MD [Staff Physician] - 1 Week Disposition: HOME - Home Medications Comprehensive Discharge Medication List: Ambulatory Orders Aspirin [ASA -] 81 mg PO DAILY 06/28/12 Atorvastatin Calcium [Lipitor] 10 mg PO DAILY 06/28/12 Carvedilol [Coreg -] 3.125 mg PO BID #60 tablet 03/08/17 Losartan Potassium [Cozaar -] 25 mg PO DAILY #30 tablet 03/08/17
== END 2017-03-08 18:00 | disposition home or self-care (01) ==
LOC: JER 22:56 → JERBED 03-06 01:34 → UNDOADMOB 03-06 01:52 → JERBED 03-06 01:52 → J4S 03-06 13:07
PROVIDERS: ADMIT Internal Medicine; ATTEND Internal Medicine
DX: I16.0 Hypertensive urgency (principal); R06.00 Dyspnea, unspecified; I10 Essential (primary) hypertension; I25.2 Old myocardial infarction; I65.23 Occlusion and stenosis of bilateral carotid arteries; E78.5 Hyperlipidemia, unspecified; Z86.73 Personal history of transient ischemic attack (TIA), and cerebral infarction without residual deficits; Z79.82 Long term (current) use of aspirin; R07.9 Chest pain, unspecified; R01.1 Cardiac murmur, unspecified
CPT/HCPCS: 36415; 70450-TC; 71010-TC; 78452-TC; 80053; 80061; 81003; 81015; 82550; 83036; 83721; 83735; 83880; 84443; 84484; 85025; 90688; 93005; 93010; 93017; 93880-TC; 99285-25; A9502; G0378

== ENCOUNTER 2017-06-14 09:15 | Inpatient (IN) | payer OTHER ==
[2017-06-14 09:33] VITALS: BMI 30.2
--- NOTE | 2017-06-14 11:02 | PDOC ---
History of Present Illness - General Chief Complaint: Injury Stated Complaint: INJURY, FALL Time Seen by Provider: 06/14/17 09:44 - History of Present Illness Initial Comments: 06/14/17 11:18 The patient is a 76 year old female with a history of HTN, hyperlipidemia, 2 prior TIAs, and a prior TN who presents for evaluation of lightheadedness and fall. The patient reports that she experienced an episode of flushing with lightheadedness and SOB 1 day ago while getting out of her car with a subsequent fall onto her left side. She states that she does not recall the fall. She reports that she intially decided to stay home, but decided to present to the ED after having 4 near falls at home due to pain in her left knee and difficulty ambulating. She denies fevers, chills, chest pain, palpitations, nausea, vomiting, abdominal pain, or changes with urination or bowel movements. Past History - Past Medical History Allergies/Adverse Reactions: Allergies Allergy/AdvReac Type Severity Reaction Status Date / Time No Known Allergies Allergy Verified 06/14/17 09:28 Home Medications: Ambulatory Orders Aspirin 81 mg PO DAILY 06/14/17 Atorvastatin Calcium 10 mg PO DAILY 06/14/17 Cholecalciferol (Vitamin D3) [Vitamin D] 2,000 unit PO DAILY 06/14/17 Lactobacillus Acidophilus [Acidophilus] 1 each PO DAILY 06/14/17 Losartan Potassium 25 mg PO BID 06/14/17 Mirtazapine 7.5 mg PO DAILY 06/14/17 Ubidecarenone [Co Q-10] 200 mg PO DAILY 06/14/17 Cardiac Disorders: Yes (heart attack 2001) CVA: Yes (TIA) COPD: No HTN: Yes - Surgical History Abdominal Surgery: Yes Appendectomy: Yes - Suicide/Smoking/Psychosocial Hx Smoking Status: No Smoking History: Never smoked Have you smoked in the past 12 months: No Number of Cigarettes Smoked Daily: 0 Hx Alcohol Use: No Drug/Substance Use Hx: No Substance Use Type: None Hx Substance Use Treatment: No Review of Systems - Review of Systems Comments:: 06/14/17 11:21 Constitutional: No fevers, chills, fatigue, malaise HEENT: No Rhinorrhea, nasal congestion, visual changes Cardiovascular: Lightheadedness. No chest pain, syncope, palpitations, Respiratory: No Cough, SOB, Hemoptysis, Gastrointestinal: No Abdominal pain, Nausea, Vomiting, Constipation, Diarrhea, Melena Genitourinary: No Dysuria, Frequency, Urgency, Hesitancy, Hematuria, Flank pain Musculoskeletal: Left knee pain. No Myalgia, arthralgia Skin: No rashes, itching, bruising, pallor Neurologic: No Headache, Dizziness, Numbness, Weakness, or Tingling Psychiatric: No Hallucinations. No SI or HI *Physical Exam - Vital Signs Last Vital Signs Temp Pulse Resp BP Pulse Ox 98.8 F 88 19 133/74 96 06/14/17 09:28 06/14/17 09:28 06/14/17 09:28 06/14/17 09:28 06/14/17 09:28 - Physical Exam Comments: 06/14/17 11:22 General Appearance: Nourished. No Apparent Distress HEENT: EOMI, CL. No obvious signs of head trauma. No Pharyngeal Erythema, Tonsillar Exudate, Tonsillar Erythema Neck: No Cervical Lymphadenopathy Respiratory/Chest: Lungs Clear, Normal Breath Sounds. No Crackles, Rales, Rhonchi, Wheezing Cardiovascular: Regular Rhythm, Regular Rate. No Murmur, Gallops, Rubs Gastrointestinal/Abdominal: Normal Bowel Sounds, Soft. No Guarding, Rebound, Tenderness Musculoskeletal: Edema and ecchymosis noted to the left knee with tenderness to palpation of the lateral aspect of the left knee. Decreased range of motion secondary to pain of the left knee. Sensation to light touch and temperature intact in the distal extremities with 2+ dp pulses bilaterally. No other obvious injuries. No CVA Tenderness Extremity: Normal Capillary Refill Integumentary: Normal Color, Dry, Warm Neurologic: combination technician II-XII NML intact, Fully Oriented, Alert, Normal Mood/Affect, Normal Response, Motor Strength 5/5. Normal Finger to Nose ED Treatment Course - LABORATORY CBC & Chemistry Diagram: 06/14/17 11:00 06/14/17 11:00 Medical Decision Making - Medical Decision Making 06/14/17 11:25 The patient is a 76 year old female with a history of HTN, hyperlipidemia, 2 prior TIAs, and a prior TN who presents for evaluation of lightheadedness and fall. Differential includes but is not limited to: Syncope, acs, arrhythmia, fracture, dislocation, contusion, infectious, metabolic derangement. Given the patient's physical exam, we are concerned for fracture in the left knee or tibia. We will obtain plain films to evaluate further. We will also obtain a cbc, cmp, troponin, ekg to evaluate for the etiology of the patient's syncope. We will continue to monitor and reassess. 06/14/17 12:42 CBC, cmp, troponin are unremarkable. Plain films of the left knee demonstrate a left lateral tibial plateau fracture as read by our radiologist. The patient will require admission for further management of her symptoms. We discussed the results and the plan with the patient who voiced understanding and agreeable. 06/14/17 13:01 We discussed the case with Dr. Mac who accepted the patient for admission. *DC/Admit/Observation/Transfer Diagnosis at time of Disposition: Syncope and collapse Tibial plateau fracture, left Qualifiers: Encounter type: initial encounter Fracture type: closed Qualified Code(s): S82.142A - Displaced bicondylar fracture of left tibia, initial encounter for closed fracture - Discharge Dispostion Condition at time of disposition: Stable Admit: Yes - Referrals Referrals: Navarro Mac MD [Primary Care Provider] - - Patient Instructions - Post Discharge Activity
--- NOTE | 2017-06-14 11:31 | PDOC ---
Attending Attestation - Resident Resident Name: Luis A Fox - ED Attending Attestation I have performed the following: I have examined & evaluated the patient, The case was reviewed & discussed with the resident, I agree w/resident's findings & plan, Exceptions are as noted - HPI HPI: 06/14/17 11:27 76 yo F c/ hx of HTN, HLD, TIA, [place] p/w syncope. Yesterday, pt was driving her car. Started to feel lightheaded, dizzy, warm. Stopped her car and while sitting in car, patient was trying to get out. As she was out of car, pt had a very brief syncopal event without chest pain or shortness of breath. Landed on left leg. Sustained pain along proximal tibia and left knee pain. No numbness, weakness. Typically ambulatory without assistance. Now unable to walk 2/2 pain. Noted left knee swelling and bruising. Pt states has almost 4 times 2/2 pain. Denies recent illnesses, fevers, chills. No palpitations. Pt called her doctor, Dr. Mac who sent pt to ED. - Physicial Exam PE: 06/14/17 11:29 GENERAL: Awake, alert, and fully oriented, in no acute distress. HEAD: No signs of trauma EYES: PERRLA, EOMI, sclera anicteric, conjunctiva clear ENT: Auricles normal inspection, hearing grossly normal, nares patent NECK: Normal ROM, supple LUNGS: Breath sounds equal, clear to auscultation bilaterally. No wheezes, and no crackles HEART: Regular rate and rhythm, normal S1 and S2, no murmurs, rubs or gallops ABDOMEN: Soft, nontender, normoactive bowel sounds. No guarding, no rebound. No masses EXTREMITIES: No pelvis tenderness. Pelvis stable. Able to flex and extend left hip. LLE: 2+ DP pulse. Sensation intact throughout. Left knee with swelling. Able to flex and extend with pain. ?laxity on posterior drawer test?. Pain elicited on varus and valgus maneuvers. Ecchymosis appreciated on proximal left tib. NEUROLOGICAL: Cranial nerves II through XII grossly intact. Normal speech, normal gait SKIN: Warm, Dry, normal turgor, no rashes or lesions noted. - Medical Decision Making 06/14/17 11:30 Vital Signs Temp Pulse Resp BP Pulse Ox 98.8 F 88 19 133/74 96 06/14/17 09:28 06/14/17 09:28 06/14/17 09:28 06/14/17 09:28 06/14/17 09:28 Pt noted with syncope. Given cardiac hx, will r/o cardiac etiology. Labs including troponin. Telemetry. Left knee pain with at least a sprain, if not possibly a tear. Start with left knee xrays. Pain control. May possibly need MRI. Given the circumstances, pt should be admitted to the hospital. 06/14/17 13:13 CBC, BMP 06/14/17 11:00 06/14/17 11:00 CMP Sodium 137 mmol/L (136-145) 06/14/17 11:00 Potassium 4.2 mmol/L (3.5-5.1) 06/14/17 11:00 Chloride 102 mmol/L (98-107) 06/14/17 11:00 Carbon Dioxide 28 mmol/L (21-32) 06/14/17 11:00 Anion Gap 7 (8-16) L 06/14/17 11:00 BUN 16 mg/dL (7-18) 06/14/17 11:00 Creatinine 0.9 mg/dL (0.55-1.02) 06/14/17 11:00 Creat Clearance w eGFR > 60 (>60) 06/14/17 11:00 Random Glucose 124 mg/dL (74-106) H 06/14/17 11:00 Calcium 8.6 mg/dL (8.5-10.1) 06/14/17 11:00 Total Bilirubin 0.9 mg/dL (0.2-1.0) D 06/14/17 11:00 AST 27 U/L (15-37) 06/14/17 11:00 ALT 28 U/L (12-78) 06/14/17 11:00 Alkaline Phosphatase 82 U/L (45-117) 06/14/17 11:00 Creatine Kinase 355 IU/L (26-192) H 06/14/17 11:00 Creatine Kinase Index 1.1 % (0.0-5.0) 06/14/17 11:00 CK-MB (CK-2) 4.257 ng/mL (0.5-3.6) H 06/14/17 11:00 Troponin I < 0.02 ng/ml (0.00-0.05) 06/14/17 11:00 Total Protein 7.2 g/dl (6.4-8.2) 06/14/17 11:00 Albumin 4.0 g/dl (3.4-5.0) 06/14/17 11:00 Radiograph demonstrates lateral plateau fracture. Ortho consult Admission Heart Score/ECG Review #1 ECG reviewed & interpreted by me at: 12:20 06/14/17 12:27 NSR 82, LVH, TWI I, avL, no std/juaquin, TWI V4-V6, QTC 462 msec. no brugada, no [facility], no WPW.
[2017-06-14 11:44] LABS: BASO % 0.5 % (0-2.0); EOS % 0.2 % (0-4.5); HEMATOCRIT 37.2 % (32.4-45.2); HEMOGLOBIN 12.2 GM/dL (10.7-15.3); LYMPH % 16.8 % (8-40); MCH 28.7 pg (25.7-33.7); MCHC 32.7 g/dl (32.0-36.0); MEAN CELL VOLUME 87.7 fl (80-96); MEAN PLT VOLUME 9.2 fl (7.5-11.1); MONO % 7.1 % (3.8-10.2); NEUT % 75.4 % (42.8-82.8); PLATELET COUNT 232 K/MM3 (134-434); RBC 4.25 M/mm3 (3.60-5.2); RDW 13.1 % (11.6-15.6); WHITE BLOOD COUNT 7.8 K/mm3 (4.0-10.0)
[2017-06-14 12:13] LABS: ANION GAP 7 (8-16); BILIRUBIN,TOTAL 0.9 mg/dL (0.2-1.0); BLOOD UREA NITROGEN 16 mg/dL (7-18); CALCIUM 8.6 mg/dL (8.5-10.1); CHLORIDE 102 mmol/L (98-107); CO2 28 mmol/L (21-32); CREATININE 0.9 mg/dL (0.55-1.02); GLUCOSE,RANDOM 124 mg/dL (74-106); POTASSIUM 4.2 mmol/L (3.5-5.1); SGOT/AST 27 U/L (15-37); SGPT/ALT 28 U/L (12-78); SODIUM 137 mmol/L (136-145); TOT PROT 7.2 g/dl (6.4-8.2)
[2017-06-14 12:15] LABS: ALK PHOS 82 U/L (45-117)
[2017-06-14 16:59] LABS: URINE APPEARANCE CLEAR; URINE BILIRUBIN NEGATIVE (NEGATIVE); URINE BLOOD NEGATIVE (NEGATIVE); URINE COLOR LTYELLOW; URINE GLUCOSE (UA) NEGATIVE (NEGATIVE); URINE KETONE NEGATIVE (NEGATIVE); URINE LEUK ESTERASE NEGATIVE (NEGATIVE); URINE NITRITE NEGATIVE (NEGATIVE); URINE PROTEIN NEGATIVE (NEGATIVE); URINE UROBILINOGEN NEGATIVE mg/dL (0.2-1.0)
--- NOTE | 2017-06-15 13:11 | CONSULT ---
Consult - text type - Consultation Consultation Note: Neurology History of Present Illness Covering for dr. Small The patient is a 76 year old female with a history of HTN, hyperlipidemia, 2 prior TIAs, and a prior CT who presents for evaluation of lightheadedness and fall. The patient reports that she experienced an episode of flushing with lightheadedness and SOB 1 day ago while getting out of her car with a subsequent fall onto her left side. She states that she does not recall the fall. She reports that she intially decided to stay home, but decided to present to the ED after having 4 near falls at home due to pain in her left knee and difficulty ambulating. She denies fevers, chills, chest pain, palpitations, nausea, vomiting, abdominal pain, or changes with urination or bowel movements. Imaging demonstrated Fx of L tibia and patient with visible echymosis and tolerating pain. Discussed with her syncopal episode. No CT head completed and will ordered. Reviewed CT head from February and no acute changes noted. CTA head and neck done previously as well and R sided 65-70% stenosis noted. Will order Carotid Doppler as well as CT head as patient with new syncopal event. Past History - Past Medical History Allergies/Adverse Reactions: Allergies Allergy/AdvReac Type Severity Reaction Status Date / Time No Known Allergies Allergy Verified 06/14/17 09:28 Home Medications: Ambulatory Orders Aspirin 81 mg PO DAILY 06/14/17 Atorvastatin Calcium 10 mg PO DAILY 06/14/17 Cholecalciferol (Vitamin D3) [Vitamin D] 2,000 unit PO DAILY 06/14/17 Lactobacillus Acidophilus [Acidophilus] 1 each PO DAILY 06/14/17 Losartan Potassium 25 mg PO BID 06/14/17 Mirtazapine 7.5 mg PO DAILY 06/14/17 Ubidecarenone [Co Q-10] 200 mg PO DAILY 06/14/17 Cardiac Disorders: Yes (heart attack 2001) CVA: Yes (TIA) COPD: No HTN: Yes - Surgical History Abdominal Surgery: Yes Appendectomy: Yes - Suicide/Smoking/Psychosocial Hx Smoking Status: No Smoking History: Never smoked Have you smoked in the past 12 months: No Number of Cigarettes Smoked Daily: 0 Hx Alcohol Use: No Drug/Substance Use Hx: No Substance Use Type: None Hx Substance Use Treatment: No Review of Systems Constitutional: No fevers, chills, fatigue, malaise HEENT: No Rhinorrhea, nasal congestion, visual changes Cardiovascular: Lightheadedness. No chest pain, syncope, palpitations, Respiratory: No Cough, SOB, Hemoptysis, Gastrointestinal: No Abdominal pain, Nausea, Vomiting, Constipation, Diarrhea, Melena Genitourinary: No Dysuria, Frequency, Urgency, Hesitancy, Hematuria, Flank pain Musculoskeletal: Left knee pain. No Myalgia, arthralgia Skin: No rashes, itching, bruising, pallor Neurologic: No Headache, Dizziness, Numbness, Weakness, or Tingling Psychiatric: No Hallucinations. No SI or HI *Physical Exam Vital Signs Period Temp Pulse Resp BP Sys/Burger Pulse Ox Last 24 Hr 98.8 F 74-79 16-18 134-144/66-67 96-100 General Appearance: Nourished. No Apparent Distress HEENT: EOMI, CL. No obvious signs of head trauma. No Pharyngeal Erythema, Tonsillar Exudate, Tonsillar Erythema Neck: No Cervical Lymphadenopathy Respiratory/Chest: Lungs Clear, Normal Breath Sounds. No Crackles, Rales, Rhonchi, Wheezing Cardiovascular: Regular Rhythm, Regular Rate. No Murmur, Gallops, Rubs Gastrointestinal/Abdominal: Normal Bowel Sounds, Soft. No Guarding, Rebound, Tenderness Musculoskeletal: Edema and ecchymosis noted to the left knee with tenderness to palpation of the lateral aspect of the left knee. Decreased range of motion secondary to pain of the left knee. Sensation to light touch and temperature intact in the distal extremities with 2+ dp pulses bilaterally. No other obvious injuries. No CVA Tenderness Extremity: Normal Capillary Refill Integumentary: Normal Color, Dry, Warm Neurologic: dress draper II-XII NML intact, Fully Oriented, Alert, Normal Mood/Affect, Normal Response, Motor Strength grossly 5/5, limited LLE 2/2 pain. Normal Finger to Nose CBCD WBC 7.8 K/mm3 (4.0-10.0) D 06/14/17 11:00 RBC 4.25 M/mm3 (3.60-5.2) 06/14/17 11:00 Hgb 12.2 GM/dL (10.7-15.3) 06/14/17 11:00 Hct 37.2 % (32.4-45.2) 06/14/17 11:00 MCV 87.7 fl (80-96) 06/14/17 11:00 MCHC 32.7 g/dl (32.0-36.0) 06/14/17 11:00 RDW 13.1 % (11.6-15.6) 06/14/17 11:00 Plt Count 232 K/MM3 (134-434) 06/14/17 11:00 MPV 9.2 fl (7.5-11.1) 06/14/17 11:00 CMP Sodium 137 mmol/L (136-145) 06/14/17 11:00 Potassium 4.2 mmol/L (3.5-5.1) 06/14/17 11:00 Chloride 102 mmol/L (98-107) 06/14/17 11:00 Carbon Dioxide 28 mmol/L (21-32) 06/14/17 11:00 Anion Gap 7 (8-16) L 06/14/17 11:00 BUN 16 mg/dL (7-18) 06/14/17 11:00 Creatinine 0.9 mg/dL (0.55-1.02) 06/14/17 11:00 Creat Clearance w eGFR > 60 (>60) 06/14/17 11:00 Calcium 8.6 mg/dL (8.5-10.1) 06/14/17 11:00 Total Bilirubin 0.9 mg/dL (0.2-1.0) D 06/14/17 11:00 AST 27 U/L (15-37) 06/14/17 11:00 ALT 28 U/L (12-78) 06/14/17 11:00 Alkaline Phosphatase 82 U/L (45-117) 06/14/17 11:00 Total Protein 7.2 g/dl (6.4-8.2) 06/14/17 11:00 Albumin 4.0 g/dl (3.4-5.0) 06/14/17 11:00 CT head, CTA head and Neck reviewed from prior admission Ordered CT head and Carotid Doppler Plan: 76 year old female with a history of HTN, hyperlipidemia, 2 prior TIAs, and a prior CT who presents for evaluation of lightheadedness and fall. The patient reports that she experienced an episode of flushing with lightheadedness and SOB 1 day ago while getting out of her car with a subsequent fall onto her left side. She states that she does not recall the fall. She reports that she intially decided to stay home, but decided to present to the ED after having 4 near falls at home due to pain in her left knee and difficulty ambulating. S Imaging demonstrated Fx of L tibia and patient with visible echymosis and tolerating pain. Discussed with her syncopal episode. No CT head completed and will ordered. Reviewed CT head from February and no acute changes noted. CTA head and neck done previously as well and reviewed Will order new CT head and Carotid doppler Continue BP control, maintain normotensive range reported being dehydrated at time of event Maintain adequate PO intake Maintain euglycemic state Fall precaution Ortho follow up regarding LLE fx Pain control
[2017-06-15] MEDS ORDERED: IBUPROFEN 600 MG TABLET (FP) PO PRN (13:40)
[2017-06-15] MEDS ORDERED: IBUPROFEN 600 MG TABLET (FP) PO ONE (13:43)
[2017-06-15] MEDS: ATORVASTATIN CA 10 MG TABLET (FP) PO SCH (21:28)
[2017-06-15] MEDS: LOSARTAN POTASSIUM 50 MG TABLET (FP) PO SCH (21:28)
[2017-06-15] MEDS: MIRTAZAPINE 15 MG TABLET (FP) PO SCH (21:29)
[2017-06-15] MEDS: HEPARIN NA (PORCINE) 5,000 UNITS/ML 1ML VIAL SQ SCH (23:15)
--- NOTE | 2017-06-15 23:27 | EKG ---
Test Reason : Blood Pressure : / mmHG Vent. Rate : 082 BPM Atrial Rate : 082 BPM P-R Int : 152 ms QRS Dur : 096 ms QT Int : 396 ms P-R-T Axes : 020 -22 -70 degrees QTc Int : 462 ms NORMAL SINUS RHYTHM MODERATE VOLTAGE CRITERIA FOR LVH, MAY BE NORMAL VARIANT NONSPECIFIC T WAVE ABNORMALITY ABNORMAL ECG WHEN COMPARED WITH ECG OF 05-MAR-2017 23:15, T WAVE INVERSION NOW EVIDENT IN LATERAL LEADS Confirmed by CODY STANTON MD ([id number]) on 06/15/2017 11:27:35 PM Referred By: Confirmed By:CODY STANTON MD
[2017-06-16] MEDS: HEPARIN NA (PORCINE) 5,000 UNITS/ML 1ML VIAL SQ SCH ×2 (05:43→14:44)
[2017-06-16] MEDS: LACTOBACILLUS ACIDOPHILUS 1 CAP PO SCH ×2 (09:08→09:49)
[2017-06-16] MEDS: CHOLECALCIFEROL (VITAMIN D3) 1,000 UNIT TABLET (FP) PO SCH ×2 (09:08→09:49)
[2017-06-16] MEDS: CARVEDILOL 3.125 MG TABLET (FP) PO SCH (09:09)
[2017-06-16] MEDS: LOSARTAN POTASSIUM 50 MG TABLET (FP) PO SCH ×2 (09:09→22:33)
--- NOTE | 2017-06-16 09:38 | PN ---
Progress Note (short form) - Note Progress Note: 76 year old female hsitory of htn, hyperlipidemia , one tia ( difficulty findings words ) and previous mi, She had lightheadedness and fall . She broke her left tibia and waiting for surgery. She denies any focal neurological symptoms today, no more dizziness. She has ct head was unremarkable. She did have cta and carotid ultrasound and showed right moderate stenosis. She saw vascular surgeon outpatient and was advise to follow up in six months. NKDA Past Medical History as above. Home Medications Aspirin 81 mg PO DAILY 06/14/17 Atorvastatin Calcium 10 mg PO DAILY 06/14/17 Cholecalciferol (Vitamin D3) [Vitamin D] 2,000 unit PO DAILY 06/14/17 Lactobacillus Acidophilus [Acidophilus] 1 each PO DAILY 06/14/17 Losartan Potassium 25 mg PO BID 06/14/17 Mirtazapine 7.5 mg PO DAILY 06/14/17 Ubidecarenone [Co Q-10] 200 mg PO DAILY 06/14/17 Neurological Examination VSS alert oriented x 3, speech is normal cn all intact, eom, pupils reactive and face symmetrical Motor 5/5 all ext sensation is normal ct head unremarkable previous cta and carotid ultrasound reviewed Assessment 76 year old female history of HTN,HLP, ?TIA , [place] has episode of presyncope and fall. Unlikley to be stroke or moderate carotid stenosis related. This event does not seems to be TIA Plan- no need for imaging carotid again, she saw vascular surgeon recenlty ( 2 weeks ago) was not a candidate for surgery and continue maximal medical therapy ( aspirin and statin) - no further recommendation from neurological Point of view - Please feeel free to call if any question Thanking you so much Cristian Rojo MD
--- NOTE | 2017-06-16 09:46 | HP ---
DATE OF ADMISSION: 06/14/2017 HISTORY OF PRESENT ILLNESS: This is a 76-year-old female known to have hypertension, hyperlipidemia, anxiety disorder, who fell at home while getting out of the car and was brought to the emergency room. She was complaining of pain, left knee and diagnosed to have a tibial plateau fracture of the left knee; so, was admitted for further management. No other medical problems. She is complaining of pain on the left knee. PHYSICAL EXAMINATION: Vital Signs: BP 140/80, pulse 68, respirations 20, temperature 97. HEENT: Unremarkable. Neck: Supple. Lungs: Clear. Breasts: No masses. Heart: S1, S2 normal. No S3 or S4. Abdomen: Soft. Legs: No edema. Left knee has range of motion restricted. There is lateral hematoma of the left leg. Neurological: Grossly normal. LABORATORY REPORTS: WBC 7.8, hemoglobin 12.2, hematocrit 37. Electrolytes: Sodium 137, potassium 4.2, chloride 102, BUN is 16, creatinine 0.9. CPK elevated at 280. Troponin is negative. IMPRESSION: 1. Left knee fracture. 2. Hypertension. 3. Hyperlipidemia. PLAN: Cleared for surgery. Matt [id number]
--- NOTE | 2017-06-16 10:42 | CON.ORTH ---
Consult Reason for Consultation:: left tibial plateau fx - Alcohol/Substance Use Hx Alcohol Use: No - Smoking History Smoking history: Never smoked Have you smoked in the past 12 months: No Aproximately how many cigarettes per day: 0 Home Medications - Allergies Allergies/Adverse Reactions: Allergies Allergy/AdvReac Type Severity Reaction Status Date / Time No Known Allergies Allergy Verified 06/14/17 09:28 - Home Medications Home Medications: Ambulatory Orders Aspirin 81 mg PO DAILY 06/14/17 Atorvastatin Calcium 10 mg PO HS 06/14/17 Cholecalciferol (Vitamin D3) [Vitamin D] 2,000 unit PO DAILY 06/14/17 Lactobacillus Acidophilus [Acidophilus] 1 each PO DAILY 06/14/17 Losartan Potassium 50 mg PO BID 06/14/17 Mirtazapine 7.5 mg PO DAILY 06/14/17 Ubidecarenone [Co Q-10] 200 mg PO DAILY 06/14/17 Coreg 3.125 mg PO 06/15/17 [place] Extract 250 mg PO DAILY 06/15/17 Physical Exam for Ortho Vital Signs: Vital Signs Temperature 98 F 06/16/17 09:04 Pulse Rate 95 H 06/16/17 09:04 Respiratory Rate 18 06/16/17 09:04 Blood Pressure 159/93 06/16/17 09:04 O2 Sat by Pulse Oximetry (%) 97 06/16/17 01:13 Labs: CBC, BMP 06/14/17 11:00 06/14/17 11:00 - Lower Extremity Knee: Yes: Left, Ecchymosis, Limited ROM, Pain, Swelling, Tenderness, Other (nvi ) Imaging - Results X-ray: Report Reviewed, Image Reviewed Assessment/Plan 76 year old female with a history of HTN, hyperlipidemia, 2 prior TIAs, and a prior [place] s/p fall 2 days ago. Pt is c/o pain in her left knee. She is unable to bear weight. a/p- left displaced lateral tibial plateau fx Risks and benefits were d/w pt in detail OR tomorrow for left lateral tibial plateau orif npo after midnight surgical clearance hold AC after 10 pm today d/w Dr. Alicia
[2017-06-16] MEDS: MIRTAZAPINE 15 MG TABLET (FP) PO SCH (22:33)
[2017-06-16] MEDS: ATORVASTATIN CA 10 MG TABLET (FP) PO SCH (22:33)
--- NOTE | 2017-06-17 09:00 | PN ---
Progress Note, Physician Chief Complaint: Scheduled for ORIF Lt knee History of Present Illness: Known HTN and hyper lipidemia For ORIF this AM - Current Medication List Current Medications: Active Medications Atorvastatin Calcium (Lipitor -) 10 mg PO HS [facility] Last Admin: 06/16/17 22:33 Dose: 10 mg Carvedilol (Coreg -) 3.125 mg PO DAILY [facility] Last Admin: 06/16/17 09:09 Dose: Not Given Cholecalciferol (Vitamin D3 -) 2,000 unit PO DAILY [facility] Last Admin: 06/16/17 09:49 Dose: 2,000 unit Heparin Sodium (Porcine) (Heparin -) 5,000 unit SQ TID [facility] Last Admin: 06/16/17 14:44 Dose: Not Given Ibuprofen (Motrin -) 600 mg PO Q8H PRN PRN Reason: FEVER Last Admin: 06/15/17 13:41 Dose: 600 mg Lactobacillus Acidophilus (Bacid -) 1 tab PO DAILY [facility] Last Admin: 06/16/17 09:49 Dose: Not Given Losartan Potassium (Cozaar -) 50 mg PO BID [facility] Last Admin: 06/16/17 22:33 Dose: 50 mg Mirtazapine (Remeron -) 7.5 mg PO HS [facility] Last Admin: 06/16/17 22:33 Dose: 7.5 mg - Objective Vital Signs: Vital Signs Temperature 98.3 F 06/17/17 07:10 Pulse Rate 74 06/17/17 07:10 Respiratory Rate 20 06/17/17 07:10 Blood Pressure 137/60 06/17/17 07:10 O2 Sat by Pulse Oximetry (%) 97 06/16/17 21:00 Constitutional: Yes: No Distress Eyes: Yes: WNL HENT: Yes: WNL Neck: Yes: WNL Cardiovascular: Yes: WNL Respiratory: Yes: WNL Gastrointestinal: Yes: WNL ...Rectal Exam: Yes: Deferred Breast(s): Yes: WNL Musculoskeletal: Yes: WNL Extremities: Yes: Erythema Edema: No Peripheral Pulses WNL: Yes Neurological: Yes: Alert Psychiatric: Yes: Alert Labs: CBC, BMP 06/14/17 11:00 06/14/17 11:00 Assessment/Plan Cleared for surgery under [place]
--- NOTE | 2017-06-17 09:01 | PN ---
Progress Note, Physician - Current Medication List Current Medications: Active Medications Atorvastatin Calcium (Lipitor -) 10 mg PO HS [facility] Last Admin: 06/16/17 22:33 Dose: 10 mg Carvedilol (Coreg -) 3.125 mg PO DAILY [facility] Last Admin: 06/16/17 09:09 Dose: Not Given Cholecalciferol (Vitamin D3 -) 2,000 unit PO DAILY [facility] Last Admin: 06/16/17 09:49 Dose: 2,000 unit Heparin Sodium (Porcine) (Heparin -) 5,000 unit SQ TID [facility] Last Admin: 06/16/17 14:44 Dose: Not Given Ibuprofen (Motrin -) 600 mg PO Q8H PRN PRN Reason: FEVER Last Admin: 06/15/17 13:41 Dose: 600 mg Lactobacillus Acidophilus (Bacid -) 1 tab PO DAILY [facility] [place] Last Admin: 06/16/17 09:49 Dose: Not Given Losartan Potassium (Cozaar -) 50 mg PO BID [facility] [place] Last Admin: 06/16/17 22:33 Dose: 50 mg Mirtazapine (Remeron -) 7.5 mg PO HS [facility] Last Admin: 06/16/17 22:33 Dose: 7.5 mg - Objective Vital Signs: Vital Signs Temperature 98.3 F 06/17/17 07:10 Pulse Rate 74 06/17/17 07:10 Respiratory Rate 20 06/17/17 07:10 Blood Pressure 137/60 06/17/17 07:10 O2 Sat by Pulse Oximetry (%) 97 06/16/17 21:00 Labs: CBC, BMP 06/14/17 11:00 06/14/17 11:00 Assessment/Plan Cleared for surgery under [place]
[2017-06-17] MEDS: CHOLECALCIFEROL (VITAMIN D3) 1,000 UNIT TABLET (FP) PO SCH (09:32)
[2017-06-17] MEDS: LOSARTAN POTASSIUM 50 MG TABLET (FP) PO SCH ×2 (09:32→21:37)
[2017-06-17] MEDS: LACTOBACILLUS ACIDOPHILUS 1 CAP PO SCH (09:32)
[2017-06-17] MEDS: CARVEDILOL 3.125 MG TABLET (FP) PO SCH (09:32)
[2017-06-17] MEDS ORDERED: ROPIVACAINE HCL 0.5% 30ML VIAL ONE (10:00)
[2017-06-17] MEDS ORDERED: DEXAMETHASONE SOD PHOSPHATE/PF 10 MG/ML SDV ONE (10:01)
[2017-06-17] MEDS ORDERED: MIDAZOLAM HCL 2 MG/2 ML SINGLE DOSE VIAL ONE ×3 (10:02→11:26)
[2017-06-17] MEDS ORDERED: BUPIVACAINE HCL/PF 0.5% (5MG/ML) 10 ML VIAL ONE (10:51)
[2017-06-17] MEDS ORDERED: EPINEPHrine 1:10,000 (P-F SYR) 1 MG/10 ML DISP.SYRIN ONE (11:00)
[2017-06-17] MEDS ORDERED: ceFAZolin SODIUM 1 GM VIAL IVPB ONE (11:10)
[2017-06-17] MEDS ORDERED: ceFAZolin SODIUM 1 GM VIAL ONE (11:20)
[2017-06-17] MEDS ORDERED: PHENYLEPHRINE HCL 10 MG/1 ML SINGLE DOSE VIAL ONE (11:20)
[2017-06-17] MEDS ORDERED: CEFAZOLIN 1 GM in DEXTROSE 5%-WATER - 50 ML IVPB ONE (12:33)
--- NOTE | 2017-06-17 12:41 | OP ---
Operative Note - Note: Operative Date: 06/17/17 ([facility]) Pre-Operative Diagnosis: left displaced lateral tibial plateau fx Operation: left lateral tibial plateau orif Post-Operative Diagnosis: Same as Pre-op Surgeon: Remy Alicia Billing Representative: Zen Dial Anesthesia: Spinal, Local Estimated Blood Loss (mls): 10 (tourniquet) Operative Report Dictated: Yes
[2017-06-17] MEDS ORDERED: HYDROmorphone HCL CARPU-JECT 4 MG/1 ML DISP.SYRIN IVPUSH PRN (12:48)
--- NOTE | 2017-06-17 13:38 | OP ---
DATE OF OPERATION: 06/17/2017 PREOPERATIVE DIAGNOSIS: Left split depression lateral tibial plateau fracture. POSTOPERATIVE DIAGNOSIS: Left split depression lateral tibial plateau fracture. PROCEDURE: Open reduction, internal fixation and bone grafting of left lateral tibial plateau fracture. SURGICAL ATTENDING: Remy Alicia MD RADIOLOGY ORDERLY: AAMIR Laws ANESTHESIA: Regional and spinal. CLOSURE: A [place] lateral tibial plateau plate with appropriate screws and 30 mL of cancellous chips and 5 mL of Vitoss as bone substitute; No. 1 Vicryl, fascia; 0 and 2-0, subcutaneous; and blair, skin. ESTIMATED BLOOD LOSS: Negligible. TOURNIQUET TIME: Approximately 1 hour. COMPLICATIONS: None. CONDITION: To recovery room in stable condition. DESCRIPTION OF PROCEDURE: Patient was taken to the operating room on June 17, 2017. Regional and spinal anesthesia was administered by the anesthesiologist. IV Kefzol was administered prophylactically prior to the case. Patient was placed supine on the operating table. A well-padded pneumatic tourniquet was placed on the left proximal thigh. The left lower extremity was prepped and draped in the usual sterile fashion. The leg was exsanguinated with an Esmarch bandage. The tourniquet was inflated to 275 mmHg. A lateral hockey stick incision over the lateral crest of the tibia and then curving along the joint line was incised sharp dissection was carried down to the level of the fascia with flaps anterior-posterior to perform the procedure. Subperiosteal dissection was done on the anterolateral proximal tibia until I fell into the fracture. The split was open, exposing a depressed articular surface. A wide periosteal elevator was placed beneath the articular surface and was used to push the articular surface back up to its regular height. The area beneath it had a large crater. This was filled with 30 mL of cancellous chips as well as Vitoss bone substitute. This was tamped into place, allowing the articular cartilage to rest on cancellous bone and not drop down. This was conformed by fluoroscopy. A [place] lateral tibial plateau plate was then pinned to the lateral side of the tibia, confirmed to be at the appropriate height. The "kickstand" screw was placed first, cinching the plate to the bone. Multiple proximal and distal screws were then placed. Due to the superior nature of the plate, only 1 of the proximal screws was a locking screw beneath the articular surface. The other 2 would have been intraarticular or too close to the articular surface. We elected to put cancellous screws there. I achieved an excellent bite there. The "kickstand" screw was replaced with a locking screw as well. Distally, 1 locking screw was applied. The other 1 I could not find the opposite hole to bite into the plate. I therefore redirected, drilled it again and screwed with a nonlocking screw, achieving excellent fixation. The fluoroscopy in AP an lateral view revealed excellent position of the plate with church of the height of the lateral plateau. The wound was irrigated. The fascia was loosely closed using No. 1 Vicryl running suture. Subcu was closed with 0 and 2-0 Vicryl and blair for skin. A sterile pressure dressing was applied followed by a knee immobilizer. Patient awakened from anesthesia and transferred to recovery in stable condition. No complications. Estimated blood loss negligible. Tourniquet time was approximately an hour. Matt MCDANIEL/[id number]
[2017-06-17] MEDS ORDERED: PT OWN MED DRAWER 7, Y5N ONE (18:51)
[2017-06-17] MEDS ORDERED: ACETAMINOPHEN 325 MG TABLET (FP) PO PRN (18:59)
[2017-06-17] MEDS ORDERED: oxyCODONE HCL 5 MG TABLET PO PRN (18:59)
[2017-06-17] MEDS ORDERED: CEFAZOLIN 1 GM PUSH 1 GM/10 ML DISP.SYRIN IVPUSH ONE (19:00)
[2017-06-17] MEDS: CEFAZOLIN 1 GM PUSH 1 GM/10 ML DISP.SYRIN IVPUSH SCH (19:03)
[2017-06-17] MEDS: ACETAMINOPHEN 325 MG TABLET (FP) PO PRN (19:08)
[2017-06-17] MEDS: oxyCODONE HCL 5 MG TABLET PO PRN (19:08)
[2017-06-17] MEDS: LACTATED RINGERS SOLUTION 1,000 ML IV SCH (21:35)
[2017-06-17] MEDS: MIRTAZAPINE 15 MG TABLET (FP) PO SCH (21:37)
[2017-06-17] MEDS: ATORVASTATIN CA 10 MG TABLET (FP) PO SCH (21:37)
[2017-06-18] MEDS: CEFAZOLIN 1 GM PUSH 1 GM/10 ML DISP.SYRIN IVPUSH SCH ×3 (02:28→18:16)
--- NOTE | 2017-06-18 09:45 | PN ---
Progress Note (short form) - Note Progress Note: Anesthesia Pt seen and examined S:alert and awake O: Vital Signs Temperature 97.9 F 06/18/17 06:01 Pulse Rate 69 06/18/17 06:01 Respiratory Rate 18 06/18/17 06:01 Blood Pressure 112/66 06/18/17 06:01 O2 Sat by Pulse Oximetry (%) 96 06/17/17 21:00 CBC, BMP 06/14/17 11:00 06/14/17 11:00 A/P: Current Active Problems Syncope and collapse (Acute) Tibial plateau fracture, left (Acute) s/p orif tibial fracture Doing well post op Continue current care Cristino Dorado MD
[2017-06-18] MEDS ORDERED: ASPIRIN 325 MG TABLET PO SCH (10:00)
[2017-06-18] MEDS: ASPIRIN 325 MG TABLET PO SCH (10:08)
[2017-06-18] MEDS: LOSARTAN POTASSIUM 50 MG TABLET (FP) PO SCH ×2 (10:08→22:06)
[2017-06-18] MEDS: CARVEDILOL 3.125 MG TABLET (FP) PO SCH (10:08)
[2017-06-18] MEDS: CHOLECALCIFEROL (VITAMIN D3) 1,000 UNIT TABLET (FP) PO SCH (10:08)
[2017-06-18] MEDS: LACTOBACILLUS ACIDOPHILUS 1 CAP PO SCH (10:08)
[2017-06-18] MEDS: ACETAMINOPHEN 325 MG TABLET (FP) PO PRN (10:21)
[2017-06-18] MEDS: oxyCODONE HCL 5 MG TABLET PO PRN ×2 (10:25→22:19)
--- NOTE | 2017-06-18 10:30 | PN ---
Progress Note, Physician Chief Complaint: c/o Left knee pain s/p Surgery History of Present Illness: 76 year old female with a history of HTN, hyperlipidemia, 2 prior TIAs, and a prior NM who presents for evaluation of lightheadedness and fall. Left Displaced Tibial Plaetue fracture - Current Medication List Current Medications: Active Medications Acetaminophen (Tylenol -) 650 mg PO Q4H PRN PRN Reason: PAIN LEVEL 6-10 Last Admin: 06/18/17 10:21 Dose: 650 mg Acetaminophen (Tylenol -) 325 mg PO Q4H PRN PRN Reason: PAIN LEVEL 1-5 Aspirin (Asa -) 325 mg PO DAILY [facility] Last Admin: 06/18/17 10:08 Dose: 325 mg Atorvastatin Calcium (Lipitor -) 10 mg PO HS [facility] Last Admin: 06/17/17 21:37 Dose: 10 mg Carvedilol (Coreg -) 3.125 mg PO DAILY [facility] Last Admin: 06/18/17 10:08 Dose: 3.125 mg Cholecalciferol (Vitamin D3 -) 2,000 unit PO DAILY [facility] Last Admin: 06/18/17 10:08 Dose: 2,000 unit Hydromorphone HCl (Dilaudid Injection -) 0.25 mg IVPUSH [id number] PRN PRN Reason: PAIN-PACU ORDER X 4 DOSES ONLY Last Admin: 06/17/17 21:38 Dose: 0.25 mg Lactated Ringer's (Lactated Ringers Solution) 1,000 mls @ 125 mls/hr IV ASDIR [facility] Last Admin: 06/17/17 21:35 Dose: 125 mls/hr Cefazolin Sodium (Ancef -) 1 gm in 10 mls @ 100 mls/hr IVPUSH Q8H-IV [facility] Stop: 06/18/17 18:59 Last Admin: 06/18/17 10:09 Dose: 100 mls/hr Lactobacillus Acidophilus (Bacid -) 1 tab PO DAILY [facility] Last Admin: 06/18/17 10:08 Dose: 1 tab Losartan Potassium (Cozaar -) 50 mg PO BID [facility] Last Admin: 06/18/17 10:08 Dose: 50 mg Mirtazapine (Remeron -) 7.5 mg PO HS [facility] Last Admin: 06/17/17 21:37 Dose: 7.5 mg Oxycodone HCl (Roxicodone -) 10 mg PO Q4H PRN PRN Reason: PAIN LEVEL 6-10 Last Admin: 06/18/17 10:25 Dose: 10 mg Oxycodone HCl (Roxicodone -) 5 mg PO Q4H PRN PRN Reason: PAIN LEVEL 1-5 - Objective Vital Signs: Vital Signs Temperature 97.9 F 06/18/17 06:01 Pulse Rate 69 06/18/17 06:01 Respiratory Rate 18 06/18/17 06:01 Blood Pressure 112/66 06/18/17 06:01 O2 Sat by Pulse Oximetry (%) 96 06/17/17 21:00 HEENT: Mm moist no anemia, PERRLA, EOMI NECK: No JVD No Bruit CHEST: CTa B/L CVS: s1S2 no m/g/r ABD: No distention, non tender BS + EXT; Left LE S/P surgery in splint, RT No edema feet, no calf tenderness [employer]: AOX3 non focal Labs: CBC, BMP 06/14/17 11:00 06/14/17 11:00 Problem List - Problems (1) Tibial plateau fracture, left Assessment/Plan: S/P surgery, bed rest, PT evaluation,pain control f/u ortho recommondations Code(s): S82.142A - DISPLACED BICONDYLAR FRACTURE OF LEFT TIBIA, INIT Qualifiers: Encounter type: initial encounter Fracture type: closed Qualified Code(s) : S82.142A - Displaced bicondylar fracture of left tibia, initial encounter for closed fracture (2) Syncope and collapse Assessment/Plan: Most Likely Neurocardiogenic F/U Neurology recommondations Code(s): R55 - SYNCOPE AND COLLAPSE (3) Hypercholesteremia Assessment/Plan: Cont Statin Code(s): E78.00 - PURE HYPERCHOLESTEROLEMIA, UNSPECIFIED (4) HTN (hypertension) Assessment/Plan: Well controlled on current meds Code(s): I10 - ESSENTIAL (PRIMARY) HYPERTENSION
[2017-06-18 11:29] LABS: BASO % 0.2 % (0-2.0); EOS % 0.1 % (0-4.5); HEMATOCRIT 30.9 % (32.4-45.2); HEMOGLOBIN 9.9 GM/dL (10.7-15.3); LYMPH % 19.9 % (8-40); MCH 28.6 pg (25.7-33.7); MCHC 32.2 g/dl (32.0-36.0); MEAN PLT VOLUME 9.7 fl (7.5-11.1); NEUT % 66.8 % (42.8-82.8); PLATELET COUNT 199 K/MM3 (134-434); RBC 3.47 M/mm3 (3.60-5.2); RDW 13.2 % (11.6-15.6); WHITE BLOOD COUNT 10.2 K/mm3 (4.0-10.0)
[2017-06-18 11:47] LABS: ANION GAP 13 (8-16); BLOOD UREA NITROGEN 25 mg/dL (7-18); CALCIUM 8.8 mg/dL (8.5-10.1); CHLORIDE 100 mmol/L (98-107); CO2 25 mmol/L (21-32); GLUCOSE,RANDOM 194 mg/dL (74-106); POTASSIUM 3.9 mmol/L (3.5-5.1); SODIUM 138 mmol/L (136-145)
--- NOTE | 2017-06-18 11:49 | PN ---
Progress Note (short form) - Note Progress Note: Pt seen, doing well on POD #1 s/p tibial plateau ORIF. In knee immobilizer, comfortable. NVI LLE looks good Orthopedically the pt is doing very well. She can be DC'd to a SNF from an orthopedic pov. Follow up in 7-[address] Alicia
[2017-06-18 11:54] LABS: ALBUMIN 3.1 g/dl (3.4-5.0); ALK PHOS 63 U/L (45-117); BILIRUBIN,TOTAL 0.6 mg/dL (0.2-1.0); CREATININE 1.1 mg/dL (0.55-1.02); SGOT/AST 27 U/L (15-37); SGPT/ALT 21 U/L (12-78); TOT PROT 6.1 g/dl (6.4-8.2)
[2017-06-18] MEDS: LACTATED RINGERS SOLUTION 1,000 ML IV SCH ×2 (15:20→22:09)
[2017-06-18] MEDS: ATORVASTATIN CA 10 MG TABLET (FP) PO SCH (22:06)
[2017-06-18] MEDS: MIRTAZAPINE 15 MG TABLET (FP) PO SCH (22:06)
--- NOTE | 2017-06-19 08:40 | PN ---
Progress Note (short form) - Note Progress Note: AVSS COMFORTABLE IN KNEE IMMOBILIZER CALF SOFT AND NT NVI BANDAGES DRY AND INTACT IMP: DOING WELL PLAN: PT-NWB, KNEE IMMOBILIZER FOR KNW. ONCE INCISION HEALS WE WILL CHANGE HER TO A HINGED KNEE BARACE AND BEGIN ROM ACTIVITY. SHE NEED TO BE NWB X 6 WEEKS. DC WHEN CHIEF SCIENTIST ARE IN PLACE
--- NOTE | 2017-06-19 08:43 | PN ---
Progress Note, Physician Chief Complaint: Pain Lt knee History of Present Illness: S/P Lt knee ORIF ,case discussed with Dr Alicia She needs to go to rehab - Current Medication List Current Medications: Active Medications Acetaminophen (Tylenol -) 650 mg PO Q4H PRN PRN Reason: PAIN LEVEL 6-10 Last Admin: 06/18/17 10:21 Dose: 650 mg Acetaminophen (Tylenol -) 325 mg PO Q4H PRN PRN Reason: PAIN LEVEL 1-5 Aspirin (Asa -) 325 mg PO DAILY [facility] Last Admin: 06/18/17 10:08 Dose: 325 mg Atorvastatin Calcium (Lipitor -) 10 mg PO HS [facility] Last Admin: 06/18/17 22:06 Dose: 10 mg Carvedilol (Coreg -) 3.125 mg PO DAILY [facility] Last Admin: 06/18/17 10:08 Dose: 3.125 mg Cholecalciferol (Vitamin D3 -) 2,000 unit PO DAILY [facility] Last Admin: 06/18/17 10:08 Dose: 2,000 unit Hydromorphone HCl (Dilaudid Injection -) 0.25 mg IVPUSH [id number] PRN PRN Reason: PAIN-PACU ORDER X 4 DOSES ONLY Last Admin: 06/17/17 21:38 Dose: 0.25 mg Lactated Ringer's (Lactated Ringers Solution) 1,000 mls @ 125 mls/hr IV ASDIR [facility] Last Admin: 06/18/17 22:09 Dose: 125 mls/hr Lactobacillus Acidophilus (Bacid -) 1 tab PO DAILY [facility] Last Admin: 06/18/17 10:08 Dose: 1 tab Losartan Potassium (Cozaar -) 50 mg PO BID [facility] Last Admin: 06/18/17 22:06 Dose: 50 mg Mirtazapine (Remeron -) 7.5 mg PO HS [facility] Last Admin: 06/18/17 22:06 Dose: 7.5 mg Oxycodone HCl (Roxicodone -) 10 mg PO Q4H PRN PRN Reason: PAIN LEVEL 6-10 Last Admin: 06/18/17 22:19 Dose: 10 mg Oxycodone HCl (Roxicodone -) 5 mg PO Q4H PRN PRN Reason: PAIN LEVEL 1-5 - Objective Vital Signs: Vital Signs Temperature 100.1 F H 06/19/17 07:10 Pulse Rate 95 H 06/19/17 07:10 Respiratory Rate 18 06/19/17 07:10 Blood Pressure 156/79 06/19/17 07:10 O2 Sat by Pulse Oximetry (%) 96 06/18/17 20:23 Constitutional: Yes: Moderate Distress Eyes: Yes: WNL HENT: Yes: WNL, Other Cardiovascular: Yes: WNL Respiratory: Yes: WNL Gastrointestinal: Yes: Normal Bowel Sounds ...Rectal Exam: Yes: Deferred Genitourinary: Yes: WNL Breast(s): Yes: WNL Musculoskeletal: Yes: Joint Swelling Extremities: Yes: Other (S/P knee surgery) Wound/Incision: Yes: Sutures Intact Neurological: Yes: Alert Labs: CBC, BMP 06/18/17 10:55 06/18/17 10:55 Assessment/Plan Percoset for pain
[2017-06-19] MEDS: CARVEDILOL 3.125 MG TABLET (FP) PO SCH ×2 (08:46→09:50)
[2017-06-19] MEDS: ASPIRIN 325 MG TABLET PO SCH (09:45)
[2017-06-19] MEDS: LACTOBACILLUS ACIDOPHILUS 1 CAP PO SCH (09:45)
[2017-06-19] MEDS: LOSARTAN POTASSIUM 50 MG TABLET (FP) PO SCH (09:45)
[2017-06-19] MEDS: CHOLECALCIFEROL (VITAMIN D3) 1,000 UNIT TABLET (FP) PO SCH (09:45)
[2017-06-19] MEDS ORDERED: HEPARIN NA (PORCINE) 5,000 UNITS/ML 1ML VIAL SQ SCH (10:00)
[2017-06-19 14:24] VITALS: BP 142/63; PULSE 94; TEMP 99.2
--- NOTE | 2017-06-19 14:39 | DS ---
Physical Examination Vital Signs: Vital Signs Temperature 99.2 F 06/19/17 14:23 Pulse Rate 94 H 06/19/17 14:23 Respiratory Rate 18 06/19/17 07:10 Blood Pressure 142/63 06/19/17 14:23 O2 Sat by Pulse Oximetry (%) 96 06/18/17 20:23 Findings/Remarks: HTN and Hyperlipidemia S/P ORIF Constitutional: Yes: No Distress Eyes: Yes: WNL HENT: Yes: WNL Neck: Yes: WNL Cardiovascular: Yes: WNL Respiratory: Yes: WNL Gastrointestinal: Yes: WNL ...Rectal Exam: Yes: WNL Renal/: Yes: WNL Breast(s): Yes: WNL Extremities: Yes: WNL Edema: No Neurological: Yes: Alert Psychiatric: Yes: Alert Labs: CBC, BMP 06/18/17 10:55 06/18/17 10:55 Discharge Summary Reason For Visit: FX LEFT TIBIAL PLATEAU,SYNCOPE Current Active Problems HTN (hypertension) (Acute) Syncope and collapse (Acute) Tibial plateau fracture, left (Acute) Condition: Improved - Instructions Referrals: Navarro Mac MD [Primary Care Provider] - Disposition: [facility] - Home Medications Comprehensive Discharge Medication List: Ambulatory Orders Aspirin 81 mg PO DAILY 06/14/17 Atorvastatin Calcium 10 mg PO HS 06/14/17 Cholecalciferol (Vitamin D3) [Vitamin D] 2,000 unit PO DAILY 06/14/17 Lactobacillus Acidophilus [Acidophilus] 1 each PO DAILY 06/14/17 Losartan Potassium 50 mg PO BID 06/14/17 Mirtazapine 7.5 mg PO DAILY 06/14/17 Ubidecarenone [Co Q-10] 200 mg PO DAILY 06/14/17 Coreg 3.125 mg PO 06/15/17 [place] Extract 250 mg PO DAILY 06/15/17
[2017-06-19] MEDS ORDERED: ATORVASTATIN CA 10 MG TABLET (FP) PO SCH (22:00)
[2017-06-20] MEDS ORDERED: ASPIRIN 81 MG CHEWABLE TABLETS PO SCH (10:00)
== END 2017-06-19 16:20 | DRG 494 ==
LOC: JERFT 09:15 → JER 09:15 → JERBED 13:03 → J6S 06-15 17:55
PROVIDERS: ADMIT Internal Medicine; ATTEND Internal Medicine
PROC: 0QSH04Z Reposition Left Tibia with Internal Fixation Device, Open Approach (ICD-10-PCS; principal; 2017-06-17 09:30)
DX: S82.142A Displaced bicondylar fracture of left tibia, initial encounter for closed fracture (principal); W19.XXXA Unspecified fall, initial encounter; Y93.9 Activity, unspecified; Y92.099 Unspecified place in other non-institutional residence as the place of occurrence of the external cause; Y99.9 Unspecified external cause status; I10 Essential (primary) hypertension; R55 Syncope and collapse; E78.5 Hyperlipidemia, unspecified
CPT/HCPCS: 36415; 70450-TC; 73560-TC-LT-FY; 73590-TC-LT-FY; 76000-TC-FY; 80053; 81003; 82550; 82553; 84484; 85025; 86850; 86900; 86901; 93005; 93010; 94760; 97116-GP; 97162-GP; 99285-25; J1644

== ENCOUNTER 2021-04-18 11:12 | Emergency (ER) | payer OTHER ==
[2021-04-18 11:33] VITALS: BMI 28.7
[2021-04-18 13:49] VITALS: BP 155/78; PULSE 89; TEMP 98.6
== END 2021-04-18 13:59 | disposition home or self-care (01) ==
LOC: JER 11:12
DX: I16.0 Hypertensive urgency (principal); I10 Essential (primary) hypertension
CPT/HCPCS: 99283-25

== ENCOUNTER 2022-02-03 15:34 | Observation (INO) | payer OTHER ==
[2022-02-03] MEDS ORDERED: LABETALOL HCL 5 MG/1 ML (100MG/20 ML VIAL) IVPUSH ONE (17:35)
[2022-02-03 18:31] LABS: BASO % 0.4 % (0-2.0); EOS % 0.3 % (0-4.5); HEMATOCRIT 37.1 % (32.4-45.2); HEMOGLOBIN 12.3 GM/dL (10.7-15.3); LYMPH % 28.6 % (8-40); MCH 29.7 pg (25.7-33.7); MCHC 33.2 g/dl (32.0-36.0); MEAN CELL VOLUME 89.5 fl (80-96); MEAN PLT VOLUME 8.8 fl (7.5-11.1); MONO % 6.8 % (3.8-10.2); NEUT % 63.9 % (42.8-82.8); PLATELET COUNT 255 10^3/uL (134-434); RBC 4.15 M/mm3 (3.60-5.2); RDW 13.5 % (11.6-15.6); URINE APPEARANCE CLEAR; URINE BILIRUBIN NEGATIVE (NEGATIVE); URINE COLOR YELLOW; URINE GLUCOSE (UA) NEGATIVE (NEGATIVE); URINE KETONE NEGATIVE (NEGATIVE); URINE LEUK ESTERASE NEGATIVE (NEGATIVE); URINE NITRITE NEGATIVE (NEGATIVE); URINE PROTEIN NEGATIVE (NEGATIVE); URINE UROBILINOGEN 0.2 mg/dL (0.2-1.0); WHITE BLOOD COUNT 5.3 K/mm3 (4.0-10.0)
[2022-02-03 18:52] LABS: CALCIUM 9.2 mg/dL (8.5-10.1)
[2022-02-03 18:53] LABS: ALBUMIN 4.1 g/dl (3.4-5.0); BLOOD UREA NITROGEN 15.6 mg/dL (7-18); MAGNESIUM 2.4 mg/dL (1.8-2.4)
[2022-02-03 18:56] LABS: CREATININE 0.7 mg/dL (0.55-1.3); PHOSPHOROUS 3.5 mg/dL (2.5-4.9)
[2022-02-03 18:57] LABS: BILIRUBIN,TOTAL 0.4 mg/dL (0.2-1); TOT PROT 7.4 g/dl (6.4-8.2)
[2022-02-04 02:47] VITALS: BMI 29.3
[2022-02-04] MEDS ORDERED: ACETAMINOPHEN 325 MG TABLET (FP) PO PRN (03:21)
[2022-02-04] MEDS ORDERED: LOSARTAN POTASSIUM 50 MG TABLET PO ONE (03:41)
[2022-02-04 08:12] LABS: BASO % 0.3 % (0-2.0); EOS % 0.8 % (0-4.5); HEMATOCRIT 32.2 % (32.4-45.2); HEMOGLOBIN 10.7 GM/dL (10.7-15.3); LYMPH % 33.8 % (8-40); MCH 29.7 pg (25.7-33.7); MCHC 33.2 g/dl (32.0-36.0); MEAN CELL VOLUME 89.5 fl (80-96); MEAN PLT VOLUME 8.9 fl (7.5-11.1); MONO % 9.4 % (3.8-10.2); NEUT % 55.7 % (42.8-82.8); PLATELET COUNT 224 10^3/uL (134-434); RDW 13.5 % (11.6-15.6); WHITE BLOOD COUNT 5.1 K/mm3 (4.0-10.0)
[2022-02-04 08:29] LABS: CALCIUM 8.8 mg/dL (8.5-10.1)
[2022-02-04 08:30] LABS: ALBUMIN 3.5 g/dl (3.4-5.0); BLOOD UREA NITROGEN 15.8 mg/dL (7-18)
[2022-02-04 08:33] LABS: CREATININE 0.8 mg/dL (0.55-1.3)
[2022-02-04 08:34] LABS: BILIRUBIN,TOTAL 0.6 mg/dL (0.2-1); TOT PROT 6.2 g/dl (6.4-8.2)
[2022-02-04 09:08] VITALS: RESP 18; TEMP 97.8
[2022-02-04] MEDS ORDERED: CLOPIDOGREL BISULFATE 75 MG TABLET (FP) PO SCH (10:00)
[2022-02-04] MEDS ORDERED: FAMOTIDINE 20 MG TABLET PO SCH (10:00)
[2022-02-04] MEDS ORDERED: ASPIRIN 81 MG CHEWABLE TABLETS PO SCH (10:00)
[2022-02-04] MEDS ORDERED: LOSARTAN POTASSIUM 50 MG TABLET PO SCH (10:00)
[2022-02-04 14:30] VITALS: BP 124/70; PULSE 63
[2022-02-04] MEDS ORDERED: ATORVASTATIN CA 20 MG TABLET (FP) PO SCH (22:00)
== END 2022-02-04 18:26 | disposition home or self-care (01) ==
LOC: JER 15:34 → JERBED 23:42 → J4S 02-04 01:53
PROVIDERS: ADMIT Internal Medicine; ATTEND Internal Medicine
PROC: 3E033GC Introduction of Other Therapeutic Substance into Peripheral Vein, Percutaneous Approach (ICD-10-PCS; principal; 2022-02-03)
DX: I25.10 Atherosclerotic heart disease of native coronary artery without angina pectoris (principal); G45.9 Transient cerebral ischemic attack, unspecified; R20.8 Other disturbances of skin sensation; R42 Dizziness and giddiness; R51.9 Headache, unspecified; Z86.73 Personal history of transient ischemic attack (TIA), and cerebral infarction without residual deficits; E78.00 Pure hypercholesterolemia, unspecified; I16.0 Hypertensive urgency; I11.9 Hypertensive heart disease without heart failure; E78.5 Hyperlipidemia, unspecified; I25.2 Old myocardial infarction; Z29.8 Encounter for other specified prophylactic measures
CPT/HCPCS: 36415; 70450-TC; 70496-TC; 70498-TC; 71046-TC-FY; 80053; 80061; 81003; 83735; 84100; 84443; 84484; 85025; 93005; 93010; 96374; 99285-25; C9803-CS; G0378; U0003; U0005

== ENCOUNTER 2022-03-07 21:45 | Observation (INO) | payer OTHER ==
[2022-03-07 21:49] VITALS: BMI 22.0
[2022-03-07 23:36] LABS: BASO % 0.4 % (0-2.0); EOS % 0.6 % (0-4.5); HEMATOCRIT 34.6 % (32.4-45.2); HEMOGLOBIN 11.4 GM/dL (10.7-15.3); LYMPH % 25.7 % (8-40); MCH 29.5 pg (25.7-33.7); MCHC 33.1 g/dl (32.0-36.0); MEAN CELL VOLUME 89.1 fl (80-96); MONO % 8.3 % (3.8-10.2); PLATELET COUNT 232 10^3/uL (134-434); RBC 3.88 M/mm3 (3.60-5.2); RDW 13.1 % (11.6-15.6)
[2022-03-07 23:36] LABS: ALBUMIN 3.8 g/dl (3.4-5.0); BILIRUBIN,TOTAL 0.4 mg/dL (0.2-1); BLOOD UREA NITROGEN 17.6 mg/dL (7-18); CALCIUM 8.9 mg/dL (8.5-10.1); CREATININE 0.8 mg/dL (0.55-1.3); MAGNESIUM 2.1 mg/dL (1.8-2.4); PHOSPHOROUS 3.4 mg/dL (2.5-4.9); TOT PROT 6.7 g/dl (6.4-8.2)
[2022-03-07 23:56] LABS: N-TERMINAL BNP 44.7 pg/ml (5-450)
[2022-03-08 01:08] LABS: INR 1.03 (0.83-1.09); PROTHROMBIN TIME (PATIENT) 11.9 SEC (9.7-13.0)
[2022-03-08 01:10] LABS: ACTIVATED PTT 30.8 SECONDS (25.2-36.5)
[2022-03-08] MEDS ORDERED: LABETALOL HCL 5 MG/1 ML (100MG/20 ML VIAL) IVPUSH ONE (01:24)
[2022-03-08] MEDS ORDERED: CEFTRIAXONE 1 GM in DEXTROSE 5%-WATER - 100 ML IVPB ONE (01:34)
[2022-03-08] MEDS ORDERED: AZITHROMYCIN 250 MG TABLET PO ONE (01:36)
[2022-03-08] MEDS ORDERED: CEFTRIAXONE 1 GM/50 ML BAG ONE (02:02)
[2022-03-08] MEDS ORDERED: DOCUSATE SODIUM 100 MG CAPSULE (FP) PO PRN (02:13)
[2022-03-08] MEDS ORDERED: ACETAMINOPHEN 325 MG TABLET (FP) PO PRN (02:13)
[2022-03-08 07:31] LABS: BASO % 0.5 % (0-2.0); EOS % 0.6 % (0-4.5); HEMATOCRIT 33.7 % (32.4-45.2); HEMOGLOBIN 11.3 GM/dL (10.7-15.3); LYMPH % 34.7 % (8-40); MCH 29.8 pg (25.7-33.7); MCHC 33.6 g/dl (32.0-36.0); MEAN CELL VOLUME 88.6 fl (80-96); MEAN PLT VOLUME 9.5 fl (7.5-11.1); MONO % 8.7 % (3.8-10.2); NEUT % 55.5 % (42.8-82.8); PLATELET COUNT 241 10^3/uL (134-434); RBC 3.81 M/mm3 (3.60-5.2); RDW 13.3 % (11.6-15.6); WHITE BLOOD COUNT 4.4 K/mm3 (4.0-10.0)
[2022-03-08 08:21] LABS: CALCIUM 9.3 mg/dL (8.5-10.1)
[2022-03-08 08:22] LABS: BLOOD UREA NITROGEN 17.1 mg/dL (7-18)
[2022-03-08 08:25] LABS: CREATININE 0.8 mg/dL (0.55-1.3)
[2022-03-08] MEDS ORDERED: CLOPIDOGREL BISULFATE 75 MG TABLET (FP) ONE (09:46)
[2022-03-08] MEDS ORDERED: FAMOTIDINE 20 MG TABLET ONE ×2 (09:46→21:54)
[2022-03-08] MEDS ORDERED: CHOLECALCIFEROL (VIT D3) 1,000 UNIT (25 MCG) TABLET ONE (09:46)
[2022-03-08] MEDS ORDERED: ASPIRIN 81 MG CHEWABLE TABLETS ONE (09:47)
[2022-03-08] MEDS: CHOLECALCIFEROL (VIT D3) 1,000 UNIT (25 MCG) TABLET PO SCH (09:50)
[2022-03-08] MEDS: CLOPIDOGREL BISULFATE 75 MG TABLET (FP) PO SCH (09:50)
[2022-03-08] MEDS: FAMOTIDINE 20 MG TABLET PO SCH ×2 (09:50→21:58)
[2022-03-08] MEDS: ASPIRIN 81 MG CHEWABLE TABLETS PO SCH (09:50)
[2022-03-08 10:27] LABS: PH,URINE 6.5 (5.0-8.0); URINE APPEARANCE CLEAR; URINE BILIRUBIN NEGATIVE (NEGATIVE); URINE COLOR YELLOW; URINE GLUCOSE (UA) NEGATIVE (NEGATIVE); URINE KETONE NEGATIVE (NEGATIVE); URINE LEUK ESTERASE NEGATIVE (NEGATIVE); URINE NITRITE NEGATIVE (NEGATIVE); URINE PROTEIN NEGATIVE (NEGATIVE); URINE UROBILINOGEN 0.2 mg/dL (0.2-1.0)
[2022-03-08] MEDS ORDERED: LOSARTAN POTASSIUM 50 MG TABLET ONE (13:10)
[2022-03-08] MEDS ORDERED: LOSARTAN POTASSIUM 50 MG TABLET PO SCH (14:00)
[2022-03-08] MEDS ORDERED: ATORVASTATIN CA 20 MG TABLET (FP) ONE (21:54)
[2022-03-08] MEDS ORDERED: MIRTAZAPINE 15 MG TABLET (FP) ONE (21:54)
[2022-03-08] MEDS ORDERED: ATORVASTATIN CA 20 MG TABLET (FP) PO SCH (22:00)
[2022-03-08] MEDS ORDERED: MIRTAZAPINE 15 MG TABLET (FP) PO SCH (22:00)
[2022-03-09] MEDS: CEFTRIAXONE 1 GM in DEXTROSE 5%-WATER - 50 ML IVPB SCH ×3 (05:13→09:57)
[2022-03-09] MEDS ORDERED: AZITHROMYCIN 500 MG TABLET PO ONE (06:00)
[2022-03-09 06:23] VITALS: TEMP 97.5
[2022-03-09] MEDS ORDERED: FAMOTIDINE 20 MG TABLET ONE (09:22)
[2022-03-09] MEDS ORDERED: CHOLECALCIFEROL (VIT D3) 1,000 UNIT (25 MCG) TABLET ONE (09:22)
[2022-03-09] MEDS ORDERED: CLOPIDOGREL BISULFATE 75 MG TABLET (FP) ONE (09:22)
[2022-03-09] MEDS ORDERED: cefTRIAXone SODIUM 1 GM VIAL ONE (09:22)
[2022-03-09] MEDS ORDERED: ASPIRIN 81 MG CHEWABLE TABLETS ONE (09:22)
[2022-03-09] MEDS: CHOLECALCIFEROL (VIT D3) 1,000 UNIT (25 MCG) TABLET PO SCH (09:29)
[2022-03-09] MEDS: FAMOTIDINE 20 MG TABLET PO SCH (09:29)
[2022-03-09] MEDS: CLOPIDOGREL BISULFATE 75 MG TABLET (FP) PO SCH (09:29)
[2022-03-09] MEDS: ASPIRIN 81 MG CHEWABLE TABLETS PO SCH (09:29)
[2022-03-09 09:30] VITALS: RESP 18
[2022-03-09] MEDS ORDERED: LOSARTAN POTASSIUM 50 MG TABLET PO SCH (11:20)
[2022-03-09 11:28] VITALS: BP 184/84; PULSE 90
[2022-03-09] MEDS ORDERED: metoPROLOL SUCCINATE 25 MG TAB.SR.24H (FP) PO SCH (11:30)
[2022-03-10] MEDS ORDERED: AZITHROMYCIN 500 MG TABLET PO SCH (10:00)
== END 2022-03-08 01:32 | disposition home or self-care (01) ==
LOC: JER 21:45 → JERBED 03-08 01:32
PROVIDERS: ADMIT Internal Medicine; ATTEND Internal Medicine
DX: I16.0 Hypertensive urgency (principal); J18.9 Pneumonia, unspecified organism; I25.10 Atherosclerotic heart disease of native coronary artery without angina pectoris; I11.9 Hypertensive heart disease without heart failure; E78.5 Hyperlipidemia, unspecified; I65.23 Occlusion and stenosis of bilateral carotid arteries; R55 Syncope and collapse
CPT/HCPCS: 36415; 70450-TC; 71045-TC-FY; 80048; 80053; 81003; 83735; 83880; 84100; 84484; 85025; 85610; 85730; 93005; 93010; 96365; 99285-25; C9803-CS; G0378; U0003; U0005

== ENCOUNTER 2022-03-15 11:46 | Inpatient (IN) | payer OTHER ==
[2022-03-15 13:22] LABS: BASO % 0.2 % (0-2.0); HEMATOCRIT 35.8 % (32.4-45.2); HEMOGLOBIN 12.3 GM/dL (10.7-15.3); LYMPH % 17.1 % (8-40); MCH 29.6 pg (25.7-33.7); MCHC 34.5 g/dl (32.0-36.0); MEAN CELL VOLUME 85.8 fl (80-96); MEAN PLT VOLUME 8.9 fl (7.5-11.1); NEUT % 74.7 % (42.8-82.8); PLATELET COUNT 200 10^3/uL (134-434); RBC 4.17 M/mm3 (3.60-5.2); RDW 12.5 % (11.6-15.6); WHITE BLOOD COUNT 3.2 K/mm3 (4.0-10.0)
[2022-03-15 13:23] LABS: VENOUS BASE EXCESS 0.3 mmol/L (-2-2); VENOUS O2 SATURATION 40.2 % (70-80); VENOUS PH 7.397 (7.310-7.410)
[2022-03-15 13:28] LABS: PH,URINE 6.5 (5.0-8.0); URINE APPEARANCE CLEAR; URINE BILIRUBIN NEGATIVE (NEGATIVE); URINE COLOR YELLOW; URINE GLUCOSE (UA) NEGATIVE (NEGATIVE); URINE KETONE TRACE (NEGATIVE); URINE LEUK ESTERASE NEGATIVE (NEGATIVE); URINE NITRITE NEGATIVE (NEGATIVE); URINE PROTEIN NEGATIVE (NEGATIVE); URINE UROBILINOGEN 0.2 mg/dL (0.2-1.0)
[2022-03-15] MEDS ORDERED: VANCOMYCIN 1 GM in D5W (PRE-DOCKED) 1,000 MG/250 ML IVPB ONE (13:38)
[2022-03-15] MEDS ORDERED: PIPERACILLIN/TAZOB 4.5 GM 4.5 GM in DEXTROSE 5%-WATER 100 ML IVPB ONE (13:39)
[2022-03-15 13:40] LABS: CHLORIDE 83 mmol/L (98-107); SODIUM 122 mmol/L (136-145)
[2022-03-15 13:43] LABS: ACTIVATED PTT 31.1 SECONDS (25.2-36.5); CALCIUM 8.8 mg/dL (8.5-10.1); PROTHROMBIN TIME (PATIENT) 11.5 SEC (9.7-13.0)
[2022-03-15 13:44] LABS: ALBUMIN 3.9 g/dl (3.4-5.0); ANION GAP 12 MMOL/L (8-16); BLOOD UREA NITROGEN 13.5 mg/dL (7-18); CO2 27 mmol/L (21-32); GLUCOSE,RANDOM 101 mg/dL (74-106); MAGNESIUM 1.8 mg/dL (1.8-2.4)
[2022-03-15 13:47] LABS: CREATININE 0.9 mg/dL (0.55-1.3); SGOT/AST 49 U/L (15-37); SGPT/ALT 30 U/L (13-61)
[2022-03-15 13:48] LABS: BILIRUBIN,TOTAL 0.4 mg/dL (0.2-1); TOT PROT 7.2 g/dl (6.4-8.2)
[2022-03-15 13:49] LABS: ALK PHOS 72 U/L (45-117)
[2022-03-15] MEDS ORDERED: PIPERACILLIN/TAZOB 4.5 GM 4.5 GM/100 ML BAG IVPB ONE (14:11)
[2022-03-15] MEDS ORDERED: VANCOMYCIN/WATER FOR INJ (PEG) 1,000 MG/200 ML BAG IVPB ONE (14:11)
[2022-03-15] MEDS ORDERED: SODIUM CHLORIDE 0.9% 500 ML INFUS.BAG IV ONE (14:29)
[2022-03-15] MEDS ORDERED: DOCUSATE SODIUM 100 MG CAPSULE (FP) PO PRN (16:00)
[2022-03-15] MEDS ORDERED: ACETAMINOPHEN 325 MG TABLET (FP) PO PRN (16:01)
[2022-03-15] MEDS ORDERED: SODIUM CHLORIDE 1,000 ML IV SCH (16:15)
[2022-03-15] MEDS: ATORVASTATIN CA 20 MG TABLET (FP) PO SCH (22:54)
[2022-03-15] MEDS: amLODIPine BESYLATE 5 MG TABLET (FP) PO SCH (22:54)
[2022-03-15] MEDS: FAMOTIDINE 20 MG TABLET PO SCH (22:54)
[2022-03-15] MEDS: HEPARIN NA (PORCINE) 5,000 UNITS/ML 1ML VIAL SQ SCH (22:54)
[2022-03-16 00:47] VITALS: BMI 21.4
[2022-03-16 09:17] LABS: BASO % 0.2 % (0-2.0); HEMATOCRIT 32.7 % (32.4-45.2); HEMOGLOBIN 11.5 GM/dL (10.7-15.3); LYMPH % 47.9 % (8-40); MCH 29.9 pg (25.7-33.7); MCHC 35.1 g/dl (32.0-36.0); MEAN CELL VOLUME 85.2 fl (80-96); MONO % 12.5 % (3.8-10.2); NEUT % 39.4 % (42.8-82.8); PLATELET COUNT 188 10^3/uL (134-434); RBC 3.84 M/mm3 (3.60-5.2); RDW 12.5 % (11.6-15.6); WHITE BLOOD COUNT 3.1 K/mm3 (4.0-10.0)
[2022-03-16 09:36] LABS: CHLORIDE 98 mmol/L (98-107); SODIUM 133 mmol/L (136-145)
[2022-03-16 09:38] LABS: CALCIUM 8.4 mg/dL (8.5-10.1)
[2022-03-16 09:39] LABS: ALBUMIN 3.5 g/dl (3.4-5.0); ANION GAP 8 MMOL/L (8-16); BLOOD UREA NITROGEN 14.9 mg/dL (7-18); CO2 27 mmol/L (21-32); GLUCOSE,RANDOM 86 mg/dL (74-106)
[2022-03-16 09:42] LABS: CREATININE 0.9 mg/dL (0.55-1.3); SGOT/AST 45 U/L (15-37); SGPT/ALT 29 U/L (13-61)
[2022-03-16 09:43] LABS: BILIRUBIN,TOTAL 0.3 mg/dL (0.2-1); TOT PROT 6.2 g/dl (6.4-8.2)
[2022-03-16 09:46] LABS: ALK PHOS 58 U/L (45-117)
[2022-03-16] MEDS ORDERED: PATIENT'S OWN MEDICATION (NON-FORMULARY) (Ubidecarenone [Co Q-10] 200 MG Capsule) PO SCH (10:00)
[2022-03-16] MEDS: FAMOTIDINE 20 MG TABLET PO SCH ×2 (10:06→21:18)
[2022-03-16] MEDS: CHOLECALCIFEROL (VIT D3) 1,000 UNIT (25 MCG) TABLET PO SCH (10:06)
[2022-03-16] MEDS: ASPIRIN 81 MG CHEWABLE TABLETS PO SCH (10:07)
[2022-03-16] MEDS: HEPARIN NA (PORCINE) 5,000 UNITS/ML 1ML VIAL SQ SCH ×2 (10:07→21:19)
[2022-03-16] MEDS: CLOPIDOGREL BISULFATE 75 MG TABLET (FP) PO SCH (10:07)
[2022-03-16] MEDS: LOSARTAN POTASSIUM 50 MG TABLET PO SCH (10:11)
[2022-03-16] MEDS: amLODIPine BESYLATE 5 MG TABLET (FP) PO SCH (10:11)
[2022-03-16] MEDS: metoPROLOL SUCCINATE 25 MG TAB.SR.24H (FP) PO SCH (10:11)
[2022-03-16 12:50] LABS: PHOSPHOROUS 3.1 mg/dL (2.5-4.9)
[2022-03-16 12:50] LABS: PHOSPHOROUS 3.8 mg/dL (2.5-4.9)
[2022-03-16] MEDS: SODIUM CHLORIDE 1,000 ML IV SCH (14:16)
[2022-03-16] MEDS: CEFTRIAXONE 1 GM in DEXTROSE 5%-WATER - 50 ML IVPB SCH (14:17)
[2022-03-16] MEDS: AZITHROMYCIN IVPB 500 MG/250 ML BAG IVPB SCH (14:48)
[2022-03-16] MEDS ORDERED: REMDESIVIR 200 MG in SODIUM CHLORIDE 250 ML IVPB ONE (15:00)
[2022-03-16] MEDS: ATORVASTATIN CA 20 MG TABLET (FP) PO SCH (21:18)
[2022-03-16] MEDS: MIRTAZAPINE 15 MG TABLET (FP) PO SCH (21:19)
[2022-03-17] MEDS: SODIUM CHLORIDE 1,000 ML IV SCH (05:48)
[2022-03-17] MEDS: CEFTRIAXONE 1 GM in DEXTROSE 5%-WATER - 50 ML IVPB SCH (09:53)
[2022-03-17] MEDS: ASPIRIN 81 MG CHEWABLE TABLETS PO SCH (09:53)
[2022-03-17] MEDS: HEPARIN NA (PORCINE) 5,000 UNITS/ML 1ML VIAL SQ SCH ×2 (09:53→21:19)
[2022-03-17] MEDS: LOSARTAN POTASSIUM 50 MG TABLET PO SCH (09:53)
[2022-03-17] MEDS: FAMOTIDINE 20 MG TABLET PO SCH ×2 (09:53→21:19)
[2022-03-17] MEDS: amLODIPine BESYLATE 5 MG TABLET (FP) PO SCH (09:53)
[2022-03-17] MEDS: metoPROLOL SUCCINATE 25 MG TAB.SR.24H (FP) PO SCH (09:53)
[2022-03-17] MEDS: CLOPIDOGREL BISULFATE 75 MG TABLET (FP) PO SCH (09:53)
[2022-03-17] MEDS: CHOLECALCIFEROL (VIT D3) 1,000 UNIT (25 MCG) TABLET PO SCH (09:53)
[2022-03-17] MEDS: AZITHROMYCIN IVPB 500 MG/250 ML BAG IVPB SCH (10:44)
[2022-03-17 11:07] LABS: BASO % 0.2 % (0-2.0); EOS % 0.1 % (0-4.5); HEMATOCRIT 33.9 % (32.4-45.2); HEMOGLOBIN 11.4 GM/dL (10.7-15.3); LYMPH % 40.1 % (8-40); MCH 29.1 pg (25.7-33.7); MCHC 33.6 g/dl (32.0-36.0); MEAN CELL VOLUME 86.6 fl (80-96); MEAN PLT VOLUME 9.5 fl (7.5-11.1); MONO % 12.3 % (3.8-10.2); NEUT % 47.3 % (42.8-82.8); PLATELET COUNT 205 10^3/uL (134-434); RBC 3.91 M/mm3 (3.60-5.2); WHITE BLOOD COUNT 2.9 K/mm3 (4.0-10.0)
[2022-03-17 11:33] LABS: ALBUMIN 3.6 g/dl (3.4-5.0); BLOOD UREA NITROGEN 12.8 mg/dL (7-18); CALCIUM 8.6 mg/dL (8.5-10.1)
[2022-03-17 11:35] LABS: CREATININE 0.9 mg/dL (0.55-1.3)
[2022-03-17 11:37] LABS: BILIRUBIN,TOTAL 0.2 mg/dL (0.2-1); TOT PROT 6.6 g/dl (6.4-8.2)
[2022-03-17] MEDS: REMDESIVIR 100 MG in SODIUM CHLORIDE 250 ML IVPB SCH (15:12)
[2022-03-17] MEDS: MIRTAZAPINE 15 MG TABLET (FP) PO SCH (21:18)
[2022-03-17] MEDS: ATORVASTATIN CA 20 MG TABLET (FP) PO SCH (21:19)
[2022-03-18] MEDS: SODIUM CHLORIDE 1,000 ML IV SCH ×3 (02:00→13:52)
[2022-03-18] MEDS: metoPROLOL SUCCINATE 25 MG TAB.SR.24H (FP) PO SCH (09:17)
[2022-03-18] MEDS: FAMOTIDINE 20 MG TABLET PO SCH ×2 (09:17→21:49)
[2022-03-18] MEDS: CLOPIDOGREL BISULFATE 75 MG TABLET (FP) PO SCH (09:17)
[2022-03-18] MEDS: LOSARTAN POTASSIUM 50 MG TABLET PO SCH (09:17)
[2022-03-18] MEDS: amLODIPine BESYLATE 5 MG TABLET (FP) PO SCH (09:17)
[2022-03-18] MEDS: CHOLECALCIFEROL (VIT D3) 1,000 UNIT (25 MCG) TABLET PO SCH (09:17)
[2022-03-18] MEDS: ASPIRIN 81 MG CHEWABLE TABLETS PO SCH (09:18)
[2022-03-18] MEDS: CEFTRIAXONE 1 GM in DEXTROSE 5%-WATER - 50 ML IVPB SCH (09:18)
[2022-03-18] MEDS: HEPARIN NA (PORCINE) 5,000 UNITS/ML 1ML VIAL SQ SCH ×2 (09:18→21:50)
[2022-03-18] MEDS: AZITHROMYCIN IVPB 500 MG/250 ML BAG IVPB SCH (09:19)
[2022-03-18] MEDS: REMDESIVIR 100 MG in SODIUM CHLORIDE 250 ML IVPB SCH (15:58)
[2022-03-18] MEDS: MIRTAZAPINE 15 MG TABLET (FP) PO SCH (21:49)
[2022-03-18] MEDS: ATORVASTATIN CA 20 MG TABLET (FP) PO SCH (21:49)
[2022-03-19] MEDS: SODIUM CHLORIDE 1,000 ML IV SCH ×2 (03:19→17:34)
[2022-03-19] MEDS: CHOLECALCIFEROL (VIT D3) 1,000 UNIT (25 MCG) TABLET PO SCH (09:30)
[2022-03-19] MEDS: FAMOTIDINE 20 MG TABLET PO SCH ×2 (09:31→21:21)
[2022-03-19] MEDS: metoPROLOL SUCCINATE 25 MG TAB.SR.24H (FP) PO SCH (09:31)
[2022-03-19] MEDS: amLODIPine BESYLATE 5 MG TABLET (FP) PO SCH (09:31)
[2022-03-19] MEDS: CLOPIDOGREL BISULFATE 75 MG TABLET (FP) PO SCH (09:31)
[2022-03-19] MEDS: LOSARTAN POTASSIUM 50 MG TABLET PO SCH (09:31)
[2022-03-19] MEDS: ASPIRIN 81 MG CHEWABLE TABLETS PO SCH (09:31)
[2022-03-19] MEDS: HEPARIN NA (PORCINE) 5,000 UNITS/ML 1ML VIAL SQ SCH ×2 (09:31→21:21)
[2022-03-19] MEDS: CEFTRIAXONE 1 GM in DEXTROSE 5%-WATER - 50 ML IVPB SCH (09:32)
[2022-03-19] MEDS: AZITHROMYCIN IVPB 500 MG/250 ML BAG IVPB SCH (09:32)
[2022-03-19 11:10] LABS: BASO % 0.2 % (0-2.0); EOS % 0.3 % (0-4.5); HEMATOCRIT 34.3 % (32.4-45.2); HEMOGLOBIN 11.4 GM/dL (10.7-15.3); LYMPH % 42.2 % (8-40); MCHC 33.2 g/dl (32.0-36.0); MEAN CELL VOLUME 87.2 fl (80-96); MONO % 8.1 % (3.8-10.2); NEUT % 49.2 % (42.8-82.8); PLATELET COUNT 248 10^3/uL (134-434); RBC 3.93 M/mm3 (3.60-5.2); RDW 12.9 % (11.6-15.6); WHITE BLOOD COUNT 3.7 K/mm3 (4.0-10.0)
[2022-03-19 11:47] LABS: CALCIUM 8.8 mg/dL (8.5-10.1)
[2022-03-19 11:48] LABS: BLOOD UREA NITROGEN 12.8 mg/dL (7-18)
[2022-03-19 11:51] LABS: CREATININE 0.6 mg/dL (0.55-1.3)
[2022-03-19] MEDS: REMDESIVIR 100 MG in SODIUM CHLORIDE 250 ML IVPB SCH (14:36)
[2022-03-19] MEDS: MIRTAZAPINE 15 MG TABLET (FP) PO SCH (21:21)
[2022-03-19] MEDS: ATORVASTATIN CA 20 MG TABLET (FP) PO SCH (21:21)
[2022-03-20] MEDS: SODIUM CHLORIDE 1,000 ML IV SCH ×3 (05:51→20:58)
[2022-03-20] MEDS: FAMOTIDINE 20 MG TABLET PO SCH ×2 (10:17→21:04)
[2022-03-20] MEDS: metoPROLOL SUCCINATE 25 MG TAB.SR.24H (FP) PO SCH (10:17)
[2022-03-20] MEDS: CHOLECALCIFEROL (VIT D3) 1,000 UNIT (25 MCG) TABLET PO SCH (10:17)
[2022-03-20] MEDS: ASPIRIN 81 MG CHEWABLE TABLETS PO SCH (10:17)
[2022-03-20] MEDS: LOSARTAN POTASSIUM 50 MG TABLET PO SCH (10:17)
[2022-03-20] MEDS: HEPARIN NA (PORCINE) 5,000 UNITS/ML 1ML VIAL SQ SCH ×2 (10:17→21:04)
[2022-03-20] MEDS: CLOPIDOGREL BISULFATE 75 MG TABLET (FP) PO SCH (10:17)
[2022-03-20] MEDS: amLODIPine BESYLATE 5 MG TABLET (FP) PO SCH (10:17)
[2022-03-20] MEDS: CEFTRIAXONE 1 GM in DEXTROSE 5%-WATER - 50 ML IVPB SCH (10:19)
[2022-03-20] MEDS: AZITHROMYCIN IVPB 500 MG/250 ML BAG IVPB SCH (11:11)
[2022-03-20] MEDS: REMDESIVIR 100 MG in SODIUM CHLORIDE 250 ML IVPB SCH (14:16)
[2022-03-20] MEDS: ATORVASTATIN CA 20 MG TABLET (FP) PO SCH (21:04)
[2022-03-20] MEDS: MIRTAZAPINE 15 MG TABLET (FP) PO SCH (21:04)
[2022-03-21] MEDS: SODIUM CHLORIDE 1,000 ML IV SCH (06:31)
[2022-03-21] MEDS: CEFTRIAXONE 1 GM in DEXTROSE 5%-WATER - 50 ML IVPB SCH (10:11)
[2022-03-21] MEDS: AZITHROMYCIN IVPB 500 MG/250 ML BAG IVPB SCH (10:12)
[2022-03-21] MEDS: ASPIRIN 81 MG CHEWABLE TABLETS PO SCH (10:14)
[2022-03-21] MEDS: CHOLECALCIFEROL (VIT D3) 1,000 UNIT (25 MCG) TABLET PO SCH (10:14)
[2022-03-21] MEDS: CLOPIDOGREL BISULFATE 75 MG TABLET (FP) PO SCH (10:15)
[2022-03-21] MEDS: amLODIPine BESYLATE 5 MG TABLET (FP) PO SCH (10:15)
[2022-03-21] MEDS: LOSARTAN POTASSIUM 50 MG TABLET PO SCH (10:15)
[2022-03-21] MEDS: HEPARIN NA (PORCINE) 5,000 UNITS/ML 1ML VIAL SQ SCH ×2 (10:15→22:17)
[2022-03-21] MEDS: FAMOTIDINE 20 MG TABLET PO SCH ×2 (10:15→22:18)
[2022-03-21] MEDS: metoPROLOL SUCCINATE 25 MG TAB.SR.24H (FP) PO SCH (10:15)
[2022-03-21 12:01] LABS: BASO % 0.4 % (0-2.0); EOS % 0.5 % (0-4.5); HEMATOCRIT 34.8 % (32.4-45.2); HEMOGLOBIN 11.5 GM/dL (10.7-15.3); LYMPH % 39.5 % (8-40); MCH 29.1 pg (25.7-33.7); MCHC 33.1 g/dl (32.0-36.0); MEAN CELL VOLUME 87.7 fl (80-96); MEAN PLT VOLUME 8.9 fl (7.5-11.1); MONO % 7.6 % (3.8-10.2); PLATELET COUNT 296 10^3/uL (134-434); RBC 3.97 M/mm3 (3.60-5.2); RDW 13.2 % (11.6-15.6); WHITE BLOOD COUNT 4.2 K/mm3 (4.0-10.0)
[2022-03-21 12:26] LABS: BLOOD UREA NITROGEN 13.1 mg/dL (7-18); CALCIUM 9.1 mg/dL (8.5-10.1)
[2022-03-21 12:30] LABS: CREATININE 0.8 mg/dL (0.55-1.3)
[2022-03-21] MEDS: FLUTICASONE PROP 0.05% 16 GM NASAL SPRAY NS SCH ×2 (14:23→22:16)
[2022-03-21] MEDS: ATORVASTATIN CA 20 MG TABLET (FP) PO SCH (22:17)
[2022-03-21] MEDS: MIRTAZAPINE 15 MG TABLET (FP) PO SCH (22:17)
[2022-03-22] MEDS: CHOLECALCIFEROL (VIT D3) 1,000 UNIT (25 MCG) TABLET PO SCH (09:16)
[2022-03-22] MEDS: amLODIPine BESYLATE 5 MG TABLET (FP) PO SCH (09:16)
[2022-03-22] MEDS: LOSARTAN POTASSIUM 50 MG TABLET PO SCH (09:17)
[2022-03-22] MEDS: FAMOTIDINE 20 MG TABLET PO SCH (09:17)
[2022-03-22] MEDS: metoPROLOL SUCCINATE 25 MG TAB.SR.24H (FP) PO SCH (09:17)
[2022-03-22] MEDS: HEPARIN NA (PORCINE) 5,000 UNITS/ML 1ML VIAL SQ SCH (09:17)
[2022-03-22] MEDS: ASPIRIN 81 MG CHEWABLE TABLETS PO SCH (09:17)
[2022-03-22] MEDS: FLUTICASONE PROP 0.05% 16 GM NASAL SPRAY NS SCH (09:18)
[2022-03-22] MEDS: CLOPIDOGREL BISULFATE 75 MG TABLET (FP) PO SCH (09:20)
[2022-03-22 11:18] VITALS: BP 143/65; PULSE 72; TEMP 98.2
[2022-03-22 11:56] VITALS: RESP 18
== END 2022-03-22 14:17 | disposition home or self-care (01) | DRG 177 ==
LOC: JER 11:46 → JERBED 15:16 → J6S 18:37
PROVIDERS: ADMIT Internal Medicine; ATTEND Internal Medicine
PROC: XW033E5 Introduction of Remdesivir Anti-infective into Peripheral Vein, Percutaneous Approach, New Technology Group 5 (ICD-10-PCS; principal; 2022-03-16)
DX: U07.1 COVID-19 (principal); G93.41 Metabolic encephalopathy; J12.82 Pneumonia due to coronavirus disease 2019; E87.1 Hypo-osmolality and hyponatremia; I10 Essential (primary) hypertension; E78.5 Hyperlipidemia, unspecified; I25.2 Old myocardial infarction; I95.89 Other hypotension; I25.10 Atherosclerotic heart disease of native coronary artery without angina pectoris; D72.819 Decreased white blood cell count, unspecified
CPT/HCPCS: 0241U-QW; 36415; 70450-TC; 71045-TC-FY; 80048; 80053; 81003; 82570; 82803; 82962; 83735; 83930; 83935; 84100; 84133; 84300; 84443; 84484; 84540; 85025; 85610; 85730; 86140; 87040; 87086; 87899; 93005; 93010; 97116-GP; 97162-GP; 99285-25; C9399; J1644

== ENCOUNTER 2022-05-16 21:38 | Inpatient (IN) | payer OTHER ==
[2022-05-16] MEDS ORDERED: ACETAMINOPHEN 1000 MG/100 ML BAG IVPB ONE (22:31)
[2022-05-16] MEDS ORDERED: ACETAMINOPHEN INJECTION 100 ML IVPB ONE (22:39)
[2022-05-16 23:32] LABS: BASO % 0.4 % (0-2.0); EOS % 0.5 % (0-4.5); HEMATOCRIT 37.8 % (32.4-45.2); HEMOGLOBIN 12.4 GM/dL (10.7-15.3); LYMPH % 20.3 % (8-40); MCH 29.5 pg (25.7-33.7); MCHC 32.9 g/dl (32.0-36.0); MEAN CELL VOLUME 89.7 fl (80-96); MEAN PLT VOLUME 9.5 fl (7.5-11.1); MONO % 6.1 % (3.8-10.2); NEUT % 72.7 % (42.8-82.8); PLATELET COUNT 242 10^3/uL (134-434); RBC 4.21 M/mm3 (3.60-5.2); RDW 13.8 % (11.6-15.6); WHITE BLOOD COUNT 5.4 K/mm3 (4.0-10.0)
[2022-05-16 23:56] LABS: CALCIUM 9.5 mg/dL (8.5-10.1)
[2022-05-16 23:57] LABS: ALBUMIN 4.3 g/dl (3.4-5.0); BLOOD UREA NITROGEN 26.4 mg/dL (7-18); MAGNESIUM 2.1 mg/dL (1.8-2.4)
[2022-05-17] LABS: CREATININE 0.9 mg/dL (0.55-1.3)
[2022-05-17 00:01] LABS: BILIRUBIN,TOTAL 0.3 mg/dL (0.2-1)
[2022-05-17 00:02] LABS: TOT PROT 7.7 g/dl (6.4-8.2)
[2022-05-17] MEDS ORDERED: SODIUM CHLORIDE 0.9% 500 ML INFUS.BAG IV ONE (00:08)
[2022-05-17] MEDS ORDERED: LABETALOL HCL 5 MG/1 ML (100MG/20 ML VIAL) IVPUSH ONE (07:53)
[2022-05-17] MEDS ORDERED: LABETALOL HCL 5 MG/1 ML (100MG/20 ML VIAL) ONE (08:05)
[2022-05-17] MEDS ORDERED: DOCUSATE SODIUM 100 MG CAPSULE (FP) PO PRN ×2 (09:52→16:36)
[2022-05-17] MEDS ORDERED: FLUTICASONE PROP 0.05% 16 GM NASAL SPRAY NS SCH (10:00)
[2022-05-17] MEDS ORDERED: CLOPIDOGREL BISULFATE 75 MG TABLET (FP) PO SCH (10:00)
[2022-05-17] MEDS ORDERED: metoPROLOL SUCCINATE 25 MG TAB.SR.24H (FP) PO SCH ×2 (10:00)
[2022-05-17] MEDS ORDERED: MIRTAZAPINE 15 MG TABLET (FP) PO SCH ×2 (10:00→22:00)
[2022-05-17] MEDS ORDERED: LOSARTAN POTASSIUM 50 MG TABLET PO SCH (10:30)
[2022-05-17 15:45] LABS: HEMATOCRIT 32.6 % (32.4-45.2); HEMOGLOBIN 10.8 GM/dL (10.7-15.3); MCH 29.8 pg (25.7-33.7); MCHC 33.2 g/dl (32.0-36.0); MEAN CELL VOLUME 89.6 fl (80-96); PLATELET COUNT 215 10^3/uL (134-434); RBC 3.63 M/mm3 (3.60-5.2); RDW 14.1 % (11.6-15.6); WHITE BLOOD COUNT 4.1 K/mm3 (4.0-10.0)
[2022-05-17 16:05] LABS: CALCIUM 8.8 mg/dL (8.5-10.1)
[2022-05-17 16:06] LABS: ALBUMIN 3.5 g/dl (3.4-5.0)
[2022-05-17 16:09] LABS: CREATININE 0.7 mg/dL (0.55-1.3)
[2022-05-17 16:10] LABS: BILIRUBIN,TOTAL 0.4 mg/dL (0.2-1)
[2022-05-17 16:11] LABS: TOT PROT 6.2 g/dl (6.4-8.2)
[2022-05-17] MEDS ORDERED: LOSARTAN POTASSIUM 50 MG TABLET ONE (17:50)
[2022-05-17] MEDS ORDERED: CLOPIDOGREL BISULFATE 75 MG TABLET (FP) ONE ×3 (17:50→21:41)
[2022-05-17] MEDS: LOSARTAN POTASSIUM 50 MG TABLET PO SCH ×2 (20:32→21:37)
[2022-05-17] MEDS ORDERED: MIRTAZAPINE 15 MG TABLET (FP) ONE ×2 (21:39→21:42)
[2022-05-17] MEDS ORDERED: ATORVASTATIN CA 20 MG TABLET (FP) ONE ×2 (21:39→21:41)
[2022-05-17] MEDS: CLOPIDOGREL BISULFATE 75 MG TABLET (FP) PO SCH (21:44)
[2022-05-17] MEDS ORDERED: ATORVASTATIN CA 10 MG TABLET (FP) PO SCH (22:00)
[2022-05-18 06:37] VITALS: RESP 20
[2022-05-18 07:28] VITALS: BMI 28.0
[2022-05-18 09:07] VITALS: BP 127/59; PULSE 67; TEMP 98.6
[2022-05-18] MEDS: CLOPIDOGREL BISULFATE 75 MG TABLET (FP) PO SCH (09:09)
[2022-05-18] MEDS: LOSARTAN POTASSIUM 50 MG TABLET PO SCH (09:09)
[2022-05-18] MEDS ORDERED: ENOXAPARIN NA (PORCINE) 40 MG/0.4 ML DISP.SYRIN SQ SCH (10:00)
== END 2022-05-18 15:09 | disposition home or self-care (01) | DRG 305 ==
LOC: JER 21:38 → JERBED 05-17 07:03 → J4W 05-18 01:59
PROVIDERS: ADMIT Internal Medicine; ATTEND Internal Medicine
DX: I16.0 Hypertensive urgency (principal); E78.5 Hyperlipidemia, unspecified; I25.10 Atherosclerotic heart disease of native coronary artery without angina pectoris; I10 Essential (primary) hypertension; I25.2 Old myocardial infarction; I77.9 Disorder of arteries and arterioles, unspecified; R77.8 Other specified abnormalities of plasma proteins; I65.22 Occlusion and stenosis of left carotid artery; Z86.73 Personal history of transient ischemic attack (TIA), and cerebral infarction without residual deficits
CPT/HCPCS: 0241U-QW; 36415; 70496-TC; 70498-TC; 71045-TC-FY; 80053; 83735; 83835; 84443; 84484; 85025; 85027; 93005; 93010; 99285-25

== ENCOUNTER 2023-05-14 13:37 | Observation (INO) | payer OTHER ==
[2023-05-14 14:47] LABS: BASO % 0.5 % (0-2.0); EOS % 0.4 % (0-4.5); HEMATOCRIT 36.7 % (32.4-45.2); HEMOGLOBIN 12.2 GM/dL (10.7-15.3); LYMPH % 24.1 % (8-40); MCH 29.6 pg (25.7-33.7); MCHC 33.2 g/dl (32.0-36.0); MEAN CELL VOLUME 89.1 fl (80-96); MEAN PLT VOLUME 9.2 fl (7.5-11.1); MONO % 6.8 % (3.8-10.2); NEUT % 68.2 % (42.8-82.8); PLATELET COUNT 234 10^3/uL (134-434); RBC 4.11 M/mm3 (3.60-5.2); RDW 13.2 % (11.6-15.6); WHITE BLOOD COUNT 5.6 K/mm3 (4.0-10.0)
[2023-05-14] MEDS ORDERED: ACETAMINOPHEN 1000 MG/100 ML BAG IVPB ONE (14:48)
[2023-05-14] MEDS ORDERED: ACETAMINOPHEN INJECTION 100 ML IVPB ONE (15:00)
[2023-05-14 15:07] LABS: POTASSIUM 3.9 mmol/L (3.5-5.1)
[2023-05-14 15:09] LABS: CALCIUM 8.9 mg/dL (8.5-10.1)
[2023-05-14 15:10] LABS: ALBUMIN 3.6 g/dl (3.4-5.0)
[2023-05-14 15:13] LABS: CREATININE 0.8 mg/dL (0.55-1.3)
[2023-05-14 15:15] LABS: BILIRUBIN,TOTAL 0.4 mg/dL (0.2-1); TOT PROT 6.8 g/dl (6.4-8.2)
[2023-05-14] MEDS ORDERED: ACETAMINOPHEN 325 MG TABLET (FP) PO PRN (17:17)
[2023-05-14 17:50] LABS: PH,URINE 5.5 (5.0-8.0); URINE APPEARANCE CLEAR; URINE BILIRUBIN NEGATIVE (NEGATIVE); URINE COLOR YELLOW; URINE GLUCOSE (UA) NEGATIVE (NEGATIVE); URINE KETONE NEGATIVE (NEGATIVE); URINE LEUK ESTERASE NEGATIVE (NEGATIVE); URINE NITRITE NEGATIVE (NEGATIVE); URINE PROTEIN NEGATIVE (NEGATIVE); URINE UROBILINOGEN 0.2 mg/dL (0.2-1.0)
[2023-05-14] MEDS ORDERED: FAMOTIDINE 20 MG TABLET ONE (21:46)
[2023-05-14] MEDS ORDERED: MIRTAZAPINE 15 MG TABLET (FP) ONE (21:47)
[2023-05-14] MEDS: MIRTAZAPINE 15 MG TABLET (FP) PO SCH (22:13)
[2023-05-14] MEDS: FAMOTIDINE 20 MG TABLET PO SCH (22:13)
[2023-05-15 00:20] VITALS: RESP 18; BMI 28.0
[2023-05-15] MEDS: ATORVASTATIN CA 20 MG TABLET (FP) PO SCH (07:14)
[2023-05-15] MEDS: ASPIRIN 81 MG CHEWABLE TABLETS PO SCH (09:34)
[2023-05-15] MEDS: LOSARTAN POTASSIUM 50 MG TABLET PO SCH (09:34)
[2023-05-15] MEDS: CLOPIDOGREL BISULFATE 75 MG TABLET (FP) PO SCH (09:34)
[2023-05-15] MEDS: FAMOTIDINE 20 MG TABLET PO SCH ×2 (09:34→21:49)
[2023-05-15 10:26] LABS: BASO % 0.3 % (0-2.0); EOS % 0.7 % (0-4.5); HEMATOCRIT 35.5 % (32.4-45.2); HEMOGLOBIN 11.7 GM/dL (10.7-15.3); LYMPH % 38.5 % (8-40); MCH 29.5 pg (25.7-33.7); MEAN CELL VOLUME 89.3 fl (80-96); MEAN PLT VOLUME 9.1 fl (7.5-11.1); MONO % 10.4 % (3.8-10.2); NEUT % 50.1 % (42.8-82.8); PLATELET COUNT 214 10^3/uL (134-434); RBC 3.98 M/mm3 (3.60-5.2); RDW 13.2 % (11.6-15.6); WHITE BLOOD COUNT 4.3 K/mm3 (4.0-10.0)
[2023-05-15 12:03] LABS: ALBUMIN 3.6 g/dl (3.4-5.0); BILIRUBIN,TOTAL 0.5 mg/dL (0.2-1); BLOOD UREA NITROGEN 17.4 mg/dL (7-18); CREATININE 0.8 mg/dL (0.55-1.3); MAGNESIUM 2.4 mg/dL (1.8-2.4); POTASSIUM 4.9 mmol/L (3.5-5.1); TOT PROT 6.5 g/dl (6.4-8.2)
[2023-05-15] MEDS: MIRTAZAPINE 15 MG TABLET (FP) PO SCH (21:49)
[2023-05-16] MEDS: ATORVASTATIN CA 20 MG TABLET (FP) PO SCH (06:42)
[2023-05-16] MEDS: ASPIRIN 81 MG CHEWABLE TABLETS PO SCH (10:27)
[2023-05-16] MEDS: CLOPIDOGREL BISULFATE 75 MG TABLET (FP) PO SCH (10:27)
[2023-05-16] MEDS: FAMOTIDINE 20 MG TABLET PO SCH (10:28)
[2023-05-16] MEDS: LOSARTAN POTASSIUM 50 MG TABLET PO SCH (10:28)
[2023-05-16 13:22] VITALS: BP 145/73; PULSE 65; TEMP 98.6
== END 2023-05-16 15:00 | disposition home or self-care (01) ==
LOC: JER 13:37 → JERBED 16:07 → J6S 22:30
PROVIDERS: ADMIT Family Medicine; ATTEND Family Medicine
PROC: 3E033NZ Introduction of Analgesics, Hypnotics, Sedatives into Peripheral Vein, Percutaneous Approach (ICD-10-PCS; principal; 2023-05-14)
DX: I10 Essential (primary) hypertension (principal); R42 Dizziness and giddiness; E78.00 Pure hypercholesterolemia, unspecified; I25.2 Old myocardial infarction; Z86.73 Personal history of transient ischemic attack (TIA), and cerebral infarction without residual deficits
CPT/HCPCS: 36415; 70450-TC; 70551-TC; 71046-TC-FY; 80053; 81003; 83735; 84443; 84484; 85025; 87086; 93005; 93010; 93880-TC; 96374; 97116-GP; 97161-GP; 99285-25; G0378